=== PATIENT | male | born 1975 | race Caucasian/White ===

== ENCOUNTER 2018-04-09 09:05 | Day surgery (SDC) | payer OTHER, SELFPAY ==
[2018-04-09] VITALS (7 sets, daily range): BP systolic 99–125; BP diastolic 68–88; PULSE 65–73; RESP 16; TEMP 35.8–36.4; O2SAT 92–100; BMI 21.3
--- NOTE | 2018-04-09 11:24 | PCM.OPRPT ---
Problem List (1) Family history of Burkett syndrome Status: Acute (2) Family hx of colon cancer Status: Acute Report of Operation Date of Procedure: 04/09/18 Pre-Operative Diagnosis: Family history of colon cancer and Burkett syndrome Post-Operative Diagnosis: Normal colonoscopy Surgery/Procedure Performed:: Colonoscopy Description of Procedure: The major risks and benefits associated with the procedure were explained to the patient in detail. The patient verbalized understanding and agreement with the same. The patient was brought to the endoscopy suite. After adequate sedation was achieved, the patient was placed in the left lateral decubitus position and a digital rectal exam was performed. This examination was within normal limits. A well-lubricated colonoscope was then inserted into the rectum and advanced under direct visualization to the level of the cecum. The bowel prep was good. The cecum was identified by both visual and anatomic landmarks. A photograph was taken of the end of the cecum. The scope was then fully withdrawn while examining the color, texture, anatomy and integrity of the mucosa from the cecum to the anal canal. The findings were consistent with normal colonic mucosa. Over 6 minutes were taken to examine the colonic mucosa. Upon reaching the rectum the scope was retroflexed to examine the distal rectal vault. The scope was then straightened and was completely retrieved upon exiting the anal canal and the procedure was terminated. The patient was then transferred to the recovery room in stable condition. Recommendations for follow up: If the patient tests negative for Burkett syndrome he would be due in 5 years. If he is positive for Burkett syndrome he would need screening colonoscopy every 1-2 years.
== END 2018-04-09 12:18 | disposition home or self-care (01) ==
PROVIDERS: Family Provider Family Medicine; PCP Family Medicine; Visit Provider Surgery
PROC: 0DJD8ZZ Inspection of Lower Intestinal Tract, Via Natural or Artificial Opening Endoscopic (ICD-10-PCS; CPT 45378; principal; 2018-04-09 10:10)
DX: Z80.0 Family history of malignant neoplasm of digestive organs (principal); F41.9 Anxiety disorder, unspecified; Z86.2 Personal history of diseases of the blood and blood-forming organs and certain disorders involving the immune mechanism; Z79.899 Other long term (current) drug therapy
CPT/HCPCS: 45378; J7120

== ENCOUNTER → 2018-07-26 09:02 | Outpatient (CLI) | payer OTHER, SELFPAY ==
[2018-07-26 12:24] LABS: Absolute Lymphocyte Count 2.23 X10^3/ul (0.83-4.51); Absolute Neutrophil Count 2.6 X10^3/uL (2.0-7.7); Basophil# 0.01 X10^3/uL; Basophil% 0.2 % (0-1); Eosinophils% 1.9 % (0-5); Hematocrit 45.2 % (40-54); Hemoglobin 15.7 g/dl (13.0-16.5); Lymphocyte # 2.23 X10^3/ul (4.0); Lymphocyte % 41.4 % (19-41); Mean Corp Hgb Conc 34.7 g/gl (32-36); Mean Corpuscular Hgb 31.1 pg (27.0-32.0); Mean Corpuscular Volume 89.5 fL (80-94); Mean Platelet Vol. 10.8 fl (6.2-12.0); Monocyte# 0.43 X10^3/uL; Neutrophil # 2.62 X10^3/uL (2.7-7.7); Neutrophil % 48.5 % (47-70); Platelet Count 239 K/mm3 (150-450); RBC Distribution Width CV 12.1 % (11.6-14.6); RBC Distribution Width SD 38.5 fl (35.1-43.9); Red Blood Count 5.05 M/mm3 (4.6-6.2); White Blood Count 5.4 K/mm3 (4.4-11.0)
[2018-07-26 12:27] LABS: POSITIVE COUNT NO; POSITIVE DIFFERENTIAL NO; POSITIVE MORPHOLOGY NO
[2018-07-26 12:37] LABS: ALB/GLOB Ratio 1.1 RATIO (0.9-2.4); AST(SGOT) 23 U/L (15-37); Alanine Aminotransfer ALT/SGPT 57 U/L (16-61); Alkaline Phosphatase 62 U/L (45-117); Anion Gap 8 (5-15); BUN 23 mg/dL (7-18); BUN/Creat Ratio 21.3 RATIO (10-20); Calcium,Total 8.9 mg/dL (8.5-10.1); Chloride 105 mmol/L (98-107); Cholesterol 193 mg/dL (200); Creatinine, Serum 1.08 mg/dL (0.70-1.30); EST Glomerular Filtration Rate 80 mL/min (>60); Est Glom Filt Rate - Afr Amer 96 mL/min (>60); Globulin 3.6 g/dL (2.2-4.2); Glucose 87 mg/dL (74-106); High Density Lipoprotein 44 mg/dL; Potassium 4.1 mmol/L (3.5-5.1); Protein, Total 7.6 g/dL (6.4-8.2); Sodium Level 142 mmol/L (136-145); Triglycerides 121 mg/dL; Very Low Density Lipoprotein 24 mg/dL (5-40)
== END ==
PROVIDERS: Family Provider Family Medicine; PCP Family Medicine; Visit Provider Family Medicine
DX: Z00.00 Encounter for general adult medical examination without abnormal findings (principal)
CPT/HCPCS: 36415; 80053; 80061; 85025

== ENCOUNTER → 2020-04-07 | Outpatient (CLI) | payer OTHER, SELFPAY ==
[2018-04-09 09:23] VITALS: BMI 21.3
[2020-04-07 12:47] LABS: Absolute Lymphocyte Count 2.48 X10^3/uL (0.83-4.51); Absolute Neutrophil Count 2.5 X10^3/uL (2.0-7.7); Basophil# 0.03 X10^3/uL; Basophil% 0.5 % (0-1); Eosinophil# 0.09 X10^3/uL; Eosinophils% 1.6 % (0-5); Hematocrit 44.4 % (40-54); Hemoglobin 15.6 g/dL (13.0-16.5); Lymphocyte # 2.48 X10^3/ul (4.0); Lymphocyte % 43.9 % (19-41); Mean Corp Hgb Conc 35.1 g/dL (32-36); Mean Corpuscular Hgb 31.5 pg (27.0-32.0); Mean Corpuscular Volume 89.5 fL (80-94); Mean Platelet Vol. 11.4 fl (6.2-12.0); Monocyte# 0.53 X10^3/uL; Monocyte% 9.4 % (0-10); NRBC Flagged by Analyzer 0 % (0-5); Neutrophil % 44.2 % (47-70); Platelet Count 246 K/mm3 (150-450); RBC Distribution Width CV 11.5 % (11.6-14.6); RBC Distribution Width SD 36.8 fl (35.1-43.9); Red Blood Count 4.96 M/mm3 (4.6-6.2); White Blood Count 5.7 K/mm3 (4.4-11.0)
[2020-04-07 13:11] LABS: ALB/GLOB Ratio 1.1 RATIO (0.9-2.4); AST(SGOT) 22 U/L (15-37); Alanine Aminotransfer ALT/SGPT 60 U/L (16-61); Alkaline Phosphatase 62 U/L (45-117); Anion Gap 4 (5-15); BUN 18 mg/dL (7-18); BUN/Creat Ratio 16.7 RATIO (10-20); Calcium,Total 8.9 mg/dL (8.5-10.1); Chloride 103 mmol/L (98-107); Cholesterol 208 mg/dL (200); Creatinine, Serum 1.08 mg/dL (0.70-1.30); EST Glomerular Filtration Rate 79 mL/min (>60); Est Glom Filt Rate - Afr Amer 96 mL/min (>60); Globulin 3.7 g/dL (2.2-4.2); Glucose 90 mg/dL (74-106); High Density Lipoprotein 44 mg/dL; Potassium 3.8 mmol/L (3.5-5.1); Protein, Total 7.7 g/dL (6.4-8.2); Sodium Level 138 mmol/L (136-145); Triglycerides 144 mg/dL; Very Low Density Lipoprotein 29 mg/dL (5-40)
== END | disposition home or self-care (01) ==
LOC: MTLAB 09:30
PROVIDERS: PCP Family Medicine; Referring Provider Family Medicine; Visit Provider Family Medicine
DX: Z00.00 Encounter for general adult medical examination without abnormal findings (principal)
CPT/HCPCS: 36415; 80053; 80061; 85025

== ENCOUNTER → 2020-04-20 | Outpatient (CLI) | payer OTHER, SELFPAY ==
--- NOTE | 2020-04-20 10:00 | MRI_ITS ---
STUDY: MRI RIGHT KNEE REASON FOR EXAM: Male, 45 years old. Right knee pain. Anterior medial swelling. TECHNIQUE: Standardized fat and water weighted pulse sequences were obtained in all 3 orthogonal planes. COMPARISON: None. FINDINGS: Patellofemoral articular cartilage preserved. Medial compartment articular cartilage preserved. Lateral compartment articular cartilage preserved. No acute fracture. No acute dislocation. No acute bone destruction. Medial meniscus intact. Lateral meniscus intact. Mild pes anserinus peritendinitis. Small volume joint effusion. Quadriceps tendon fat pad impingement/edema. Mild anterior soft tissue swelling. Small popliteal cyst. Normal medial collateral ligamentous complex (MCL). Normal proximal tibiofibular articulation. Normal lateral collateral (fibular) ligament. Normal popliteus tendon. Normal biceps femoris tendon. Normal anterior cruciate ligament (ACL). Normal posterior cruciate ligament (PCL). Normal medial and lateral patellar retinaculum. Normal quadriceps tendon. Normal patellar tendon. Normal Hoffa''s fat pad. MRI/Lower Ext Joint Only (Routine) IMPRESSION: No internal derangement Mild pes anserinus peritendinitis Quadriceps tendon fat pad edema/impingement Small joint effusion, mild anterior swelling and small popliteal cyst Electronically Signed: Eber Shetty DO at 10:46 EDT Tel , Service support ,
== END | disposition home or self-care (01) ==
LOC: MRI 09:38
PROVIDERS: PCP Family Medicine; Referring Provider Family Medicine; Visit Provider Family Medicine
DX: M25.561 Pain in right knee (principal); M25.461 Effusion, right knee
CPT/HCPCS: 73721

== ENCOUNTER → 2020-05-21 | Outpatient (CLI) | payer OTHER, SELFPAY | END | disposition home or self-care (01) | LOC: MTDU 17:18 | PROVIDERS: PCP Family Medicine | DX: R50.9 Fever, unspecified (principal); R51.9 Headache, unspecified | CPT/HCPCS: 87635; C9803; U0003 ==

== ENCOUNTER 2020-10-03 13:35 | Emergency (ER) | payer OTHER, SELFPAY ==
[2020-10-03 13:36] VITALS: BP 142/100; PULSE 92; RESP 18; TEMP 35.7; O2SAT 96; BMI 22.8
[2020-10-03 13:45] VITALS: BP 75/54; PULSE 56; RESP 15
--- NOTE | 2020-10-03 13:51 | CT_ITS ---
STUDY: CT ABDOMEN AND PELVIS WITH CONTRAST REASON FOR EXAM: Male, 45 years old. ANGELES-ANAL VS ISCHIC RECTAL ABCESS, HX-HEMORRHOIDS, FAM HX OF ROBERTSON SYNDROME AND COLON CA, INGUINAL HERNIA REPAIR RADIATION DOSAGE (If Supplied By Facility): CTDIvol = ( 8.89 ) mGy, DLP = ( 1020.02 ) mGycm TECHNIQUE: Transaxial images were obtained from the dome of the diaphragm to the symphysis pubis without oral contrast. IV 100mL Isovue-370 was administered. Sagittal and coronal images were reconstructed. Individualized dose optimization techniques were used for this CT. COMPARISON: None. FINDINGS: The visualized lung bases are unremarkable. The visualized portions of the heart are within normal limits. Normal liver. Normal gallbladder and extrahepatic biliary system. Normal spleen. Normal pancreas. Normal bilateral adrenal glands. Normal right kidney. Normal left kidney. Normal visualized stomach. Normal small intestine. Normal colon. Subtle stranding of the fat along the right side of the anus consistent with proctitis. No abnormal gas to suggest fistula or abscess. The appendix is visualized and appears normal. Normal abdominal aorta. Normal inferior vena cava. Normal retroperitoneum. Normal urinary bladder. Normal abdominal wall. Normal osseous structures. CT/Abdomen/Pelvis W IV Cont ONLY IMPRESSION: Proctitis but no evidence of abscess or fistula. Electronically Signed: Rell Devine MD at 15:42 EST Tel , Service support ,
--- NOTE | 2020-10-03 13:52 | ED.DCSUM_ITS ---
History of Present Illness Chief Complaint: Abscess Informant: Patient Onset: Days Context: Sudden Onset Timing: Continuous Quality: Pain Location: Anus Current Severity: Moderate Maximum Severity: Severe Worsened by: Bowel movement and sitting Relieved by: Nothing Associated Symptoms: Nothing Narrative: Patient is a healthy 45-year-old male who denies history of diabetes, connective tissue disorder, rheumatic fever, heart murmur or SBE. He is on no immunosuppressive therapy. He states on he had a bout of food poisoning had diarrhea. He noted lump with wiping on Sunday. He was sent from urgent care for abscessed hemorrhoid. CT of the pelvis was obtained with IV contrast to evaluate for large perianal abscess that would require formal drainage in the OR versus emergency department. He last had something to eat or drink early this morning for breakfast. He has no allergies to antibiotics. Prior similar symptoms: No Recent Illness/Hospitalization: No - Past Medical History (1) Anxiety Status: Acute (2) Hemorrhoids Status: Acute Past Medical History - Allergies and Home Meds Allergies/Adverse Reactions: Allergies No Known Allergies Allergy (Verified 10/03/20 13:36) Primary Care Physician: Segundo Kruse DO [Primary Care Provider] - Prior records reviewed: Yes Surgical History: noncontributory Lives: With Family Smoking Status: Never smoker Alcohol: None Drugs: None Review of Systems General: Reports: Sweats. Denies: Chills, Fever, Malaise, Subjective Eyes: Denies: Visual changes - bilaterally, Blurred Vision - bilaterally ENT: Denies: Rhinorrhea, Sore throat Cardiovascular: Denies: Chest pain, Palpitations Respiratory: Denies: Dyspnea, Cough, Dyspnea on exertion Gastrointestinal: Denies: Nausea, Vomiting, Diarrhea Genitourinary: Denies: Dysuria, Hematuria, Frequency Musculoskeletal: Denies: Myalgias, Arthralgias, Neck pain, Back pain Skin: Reports: Rash, Wounds Neurological: Denies: Headache, Weakness, Parasthesia Endocrine: Denies: Polyuria, Polydipsia Hematologic: Denies: Easy bruising, Easy bleeding Physical Exam Vital Signs/Narrative: Vital Signs Temp Pulse Resp BP Pulse Ox 10/03/20 13:36 96.2 F L 92 18 142/100 H 96 Inital Vital Signs reviewed: Yes General: Well nourished, Well developed, Acute Distress Head: Normocephalic, Atraumatic Eyes: Perrl, EOMI. Negative for: Scleral icterus ENT: Moist mucous membranes, No rhinorrhea Neck: Supple, Nontender, No lymphadenopathy, No JVD Cardiovascular: Regular rate, Regular rhythm, No murmurs, Normal S1, Normal S2 Respiratory: No distress, CTA bilaterally, Chest nontender Rectal: - - Significant discomfort with stenosis. On rectal exam purulent drainage noted 7:00 lithotomy position. Back: Nontender, Normal Inspection Extremities: Nontender, No edema Skin: Normal color, No rash Neurological: Alert, Oriented x3, Cranial nerves II-XII grossly intact, Normal Strength, Normal Sensation Psychological: Normal affect, Normal Mood Diagnostic/Tx/Re-eval Impressions Abdomen/Pelvis CT 10/03/20 13:51 IMPRESSION: Proctitis but no evidence of abscess or fistula. Electronically Signed: Rell Deivne MD at 15:42 EST Tel , Service support , 10/03/20 13:51 CT Pel [Abdomen/Pelvis W IV Cont ONLY] [CT] Stat Laboratory Results 10/03/20 10/03/20 10/03/20 14:00 14:00 14:00 WBC 8.5 RBC 4.93 Hgb 15.7 Hct 43.0 MCV 87.2 MCH 31.8 MCHC 36.5 H RDW Std Deviation 35.8 RDW Coeff of Caryn 11.2 L Plt Count 270 MPV 10.8 Immature Gran % (Auto) 0.200 Neut % (Auto) 74.5 H Lymph % (Auto) 16.9 L [place] % (Auto) 7.5 Eos % (Auto) 0.5 Baso % (Auto) 0.4 Absolute Neuts (auto) 6.4 Absolute Lymphs (auto) 1.44 Nucleated RBC % 0 Sodium 138 Potassium 3.9 Chloride 102 Carbon Dioxide 30.0 Anion Gap 6 BUN 16 Creatinine 1.05 Estim Creat Clear Calc 86.40 Est GFR (MDRD) Af Amer 99 Est GFR (MDRD) Non-Af 81 BUN/Creatinine Ratio 15.2 Glucose 117 H Lactic Acid 1.[address] reveals evidence of proctitis no evidence of abscess. Suspect abscess drained when I performed the rectal exam since there was significant mount of purulent material that drained from the perianal region. White count is normal, lactate is normal. The hypotensive episode occurred when he had an IV placed and was a vasovagal episode. He has seen a surgeon in the past. We will have him referred for to that surgeon. - Medical Decision Making She has either a perianal versus ischio rectal abscess. There is no history of inflammatory bowel disorder. Uncertain cause. Appropriate work-up was undertaken. He was started on antibiotics. CT of the pelvis with IV contrast was ordered. Will drain if appropriate in the emergency Nuñez otherwise will call surgeon on-call, Dr. Daysi Brown ED Disposition - Plan for ED Patient: Disposition: Home or Assisted Living Diagnosis: Perianal abscess, Proctitis Instructions: ED ABSCESS Sadia-Anal IandD Prescriptions: Amox/Clavulanate Tablet [Augmentin Tablet] 875 mg PO Q12H #20 tab Transmission Status: Pending to [facility] Referrals: Segundo Kruse DO [Primary Care Provider] - Orlando Cotton MD [STAFF PHYSICIAN] - 2 Days for wound check
[2020-10-03 14:21] LABS: Absolute Lymphocyte Count 1.44 X10^3/uL (0.83-4.51); Absolute Neutrophil Count 6.4 X10^3/uL (2.0-7.7); Basophil# 0.03 X10^3/uL; Basophil% 0.4 % (0-1); Eosinophil# 0.04 X10^3/uL; Eosinophils% 0.5 % (0-5); Hemoglobin 15.7 g/dL (13.0-16.5); Lymphocyte # 1.44 X10^3/ul (4.0); Lymphocyte % 16.9 % (19-41); Mean Corp Hgb Conc 36.5 g/dL (32-36); Mean Corpuscular Hgb 31.8 pg (27.0-32.0); Mean Corpuscular Volume 87.2 fL (80-94); Mean Platelet Vol. 10.8 fl (6.2-12.0); Monocyte# 0.64 X10^3/uL; Monocyte% 7.5 % (0-10); NRBC Flagged by Analyzer 0 % (0-5); Neutrophil # 6.37 X10^3/uL (2.7-7.7); Neutrophil % 74.5 % (47-70); Platelet Count 270 K/mm3 (150-450); RBC Distribution Width CV 11.2 % (11.6-14.6); RBC Distribution Width SD 35.8 fl (35.1-43.9); Red Blood Count 4.93 M/mm3 (4.6-6.2); White Blood Count 8.5 K/mm3 (4.4-11.0)
[2020-10-03 14:30] LABS: Anion Gap 6 (5-15); BUN 16 mg/dL (7-18); BUN/Creat Ratio 15.2 RATIO (10-20); Calcium,Total 9.3 mg/dL (8.5-10.1); Chloride 102 mmol/L (98-107); Creatinine, Serum 1.05 mg/dL (0.70-1.30); EST Glomerular Filtration Rate 81 mL/min (>60); Est Glom Filt Rate - Afr Amer 99 mL/min (>60); Glucose 117 mg/dL (74-106); Potassium 3.9 mmol/L (3.5-5.1); Sodium Level 138 mmol/L (136-145)
[2020-10-03 14:37] LABS: Lactic Acid 1.5 mmol/L (0.4-1.9)
[2020-10-03] MEDS: 0.9% Normal Saline 1,000 ML 1000 ML IV ×2 (16:00→17:06)
[2020-10-03 16:29] VITALS: BP 129/91; PULSE 85; RESP 16; TEMP 35.7; O2SAT 97
--- NOTE | 2020-10-03 16:33 | ED.DCSUM_ITS ---
- ER Visit Summary Date of Service: 10/03/20 Chief Complaint: [] History of Present Illness: The patient is a 45 M [] Physical Examination: [] Test Results: [] Emergency Department Course and Treatment: [] Treatment Plan: [] Disposition: [] Impression: [] This note was generated with [employer] dictation software. It may contain incorrect words, spelling, and punctuation that were not noted in review of the chart prior to signing ED Disposition - Plan for ED Patient: Disposition: Home or Assisted Living Diagnosis: Perianal abscess, Proctitis Instructions: ED ABSCESS Sadia-Anal IandD Prescriptions: Amox/Clavulanate Tablet [Augmentin Tablet] 875 mg PO Q12H #20 tab Transmission Status: Received by [facility] Oxycodone HCl/Acetaminophen [Percocet 5/325] 1 tablet PO Q6H PRN PRN 3 Days #12 tablet PRN Reason: Pain Transmission Status: Sent to [facility] Referrals: Orlando Cotton MD [STAFF PHYSICIAN] - 2 Days for wound check Segundo Kruse DO [Primary Care Provider] -
== END 2020-10-03 18:14 | disposition home or self-care (01) ==
PROVIDERS: Emergency Provider Emergency Medicine; PCP Family Medicine
DX: K61.0 Anal abscess (principal); K62.89 Other specified diseases of anus and rectum
CPT/HCPCS: 74177; 80048; 83605; 85025; 87040; 96365; 99284; J7030; J7040; Q9967; A4216; J2405

== ENCOUNTER 2021-04-08 07:23 | Day surgery (SDC) | payer OTHER, SELFPAY ==
[2021-03-02 14:01] VITALS: BMI 22.8
[2021-04-08] VITALS (7 sets, daily range): BP systolic 86–127; BP diastolic 65–96; PULSE 58–75; RESP 16; TEMP 36.1–36.5; O2SAT 93–97; BMI 22.7
[2021-04-08] MEDS: Lactated Ringers 1,000 ML 100 ML IV (07:51)
--- NOTE | 2021-04-08 08:25 | H&P.OPEN ---
HPI - General HPI Greg BARAHONA, is a 45 M who presents for screening colonoscopy. Patient has screening colonoscopies every 3 years due to family history of Burkett syndrome as well as family history of colon cancer. Patient is not having any abdominal pain or blood in his stool at this time. Patient recently had a perirectal abscess which he reports that has calm down over the last [address] [facility] Medical History (Updated 04/07/21 @ 12:20 by Olivia Mayen) Alcohol use Anxiety Family history of Burkett syndrome Family hx of colon cancer Hemorrhoids History of stress test Non-smoker Perianal abscess Rectal pain Syncope Home Medications paroxetine HCl 10 mg tablet 10 mg PO QDAY 04/02/18 [History Last Taken 10/03/20] Allergy/AdvReac Type Severity Reaction Status Date / Time No Known Allergies Allergy Verified 04/08/21 07:37 Family History Mother Colon cancer Hodgkin lymphoma Non-Hodgkin lymphoma Surgical History (Updated 04/07/21 @ 12:20 by Olivia Mayen) History of wisdom tooth extraction Hx of colonoscopy Hx of inguinal hernia repair Hx of tooth extraction Social History Smoking Status: Never smoker second hand exposure: No alcohol intake: current alcohol intake frequency: a few times a month substance use type: does not use caffeine: Yes what type of physical activity do you participate in: none frequency: does not exercise seatbelt use: always Past Medical/Surgical History Planned Operation Planned Operative Procedure/s: COLONOSCOPY S.O.S: No Previous Hospitalizations/Surgeries HX Hospitalizations: No HX of Surgeries: hernia repair as child wisdom teeth colonoscopy Any Problems With Anesthesia: No You/Your Family Experience Fever (Hyperthermia) With Anes: No Cholinesterase deficiency: No Cardiovascular Hx Chest Pain within Last 2 months: No Hx of Irregular Heartbeat and/or Afib: No Hx Heart Attack: No Hx Congestive Heart Failure: No Hx Rheumatic Fever: No Hx Hypertension: No Hx Internal Defibrillator: No Hx Pacemaker: No Hx Cardiac Catheterization: No Hx Cardiac Surgery/Stents/Etc.: No Hx Stress Test: No Hx Pain in Legs when Walking/Leg Cramps: No Respiratory Chronic Cough: No HX of Shortness of Breath: No Hoarseness: No Hx Chronic Obstructive Pulmonary Disease (COPD): No Hx Asthma: No Hx Emphysema: No Hx Sleep Apnea: No Hx Respiratory Tract Infection/Cold (presently): No Do You Snore Loudly (louder than talking or can be heard): No Do You Often Feel Tired/ Fatigued/ Sleepy Dring Daytime?: No Has Anyone Observed You Stop Breathing During Sleep?: No Result (for STOP score): Negative Hx Smoking: No Smoking Status: Never smoker Gastrointestinal Hx Gastroesophageal Reflux: No Hx Gastrointestinal Disorders: No Hx Gastrointestinal Bleed: No Hx Ulcer: No Hx Hiatal Hernia: No Difficulty Chewing/Swallowing: No Special diet followed at home: No Hx Unplanned Weight Loss of 20#: No HX Unplanned Weight Gain of 20#: No Neurological Hx Seizures: No HX Syncope/Blackout Spells/Unconsciousness: Yes (neurogenic syncopial episodes) Hx Transient Ischemic Attacks (TIA): No Hx Multiple Sclerosis: No Hx Parkinson's Disease: No Hx Head/Neck Injury: No Hx Headaches: No Hx Back Injury/Pain: No Recent Onset of Speech Difficulty: No Restless Legs: Yes (occ) Does patient have nerve stimulator: No Blood Disorder Hx Leukemia: No Bleeding Tendencies: No Hx Deep Vein Thrombosis: No Hx High Cholesterol: No Blood Transmitted Disease: No Hx Hepatitis: No Hx Cirrhosis: No Hx Anemia: Yes (in the past) Hx Blood Disorders: No Genitourinary Hx Renal Disease: No Musculoskeletal Hx Arthritis: No Hx Rheumatoid Arthritis: No Hx Gout: No Recent Onset of an Orthopedic Problem: No Endocrine Hx Diabetes: No Thyroid Disease: No Hx Steroid Therapy: No Psycho/Social Hx Substance Use: No Hx Alcohol Use: Yes (social) Hx Anxiety: Yes (on med) Hx Depression: No Mental Illness: No Hx Dementia: No Miscellaneous Hx Cancer: No Recent Exposure to Contagious Disease: No Hx of C-Diff: No Any Loose Teeth: No Allergies No Known Allergies Allergy (Verified 04/08/21 07:37) Discharge Is Pt Admitted From a Retirement, or a Fdc: No After D/C, Where Do you Plan to Go: Return Home Vital Signs Vital Signs Vital Signs: 04/08/21 07:38 Temperature 97.6 F L Temperature Source Temporal Pulse Rate 75 Respiratory Rate 16 Respiratory Pattern Normal Blood Pressure 127/96 H Blood Pressure Mean 106 Blood Pressure Source Monitor Blood Pressure Position Semi-Fowlers Blood Pressure Location Left Arm Pulse Ox 97 Oxygen Delivery Method Room Air Weight Weight: 149 lb 11.102 oz Body Mass Index (BMI) 22.7 Physical Exam Const alert and oriented x3 Resp normal respiratory effort and normal air movement Cardio regular rate and regular rhythm GI soft to palpation, non-tender and non-distended Assessment & Plan Assessment/Plan (1) Rectal pain: (2) Family history of Burkett syndrome: PLAN: The patient has family history of Burkett syndrome and requires colonoscopies every 3 years. He has not had any issues except for recurrent perirectal abscesses. His last colonoscopy was 3 years ago and was normal. Patient reports over the last 2 weeks the perirectal abscess has improved there is concern for possible rectal fistula. I explained endoscopy in detail to the patient. I explained the risks including but not limited to stroke or heart attack with anesthesia, perforation of the GI tract, bleeding, infection. I explained that any of these could necessitate further emergency surgery. The patient understands and all questions were answered sufficiently. The patient wishes to proceed with procedure. Orlando Cotton MD Pager: [facility] [address] [place] [address] [address] [place] [address] Office: Surgery Risks - Colonoscopy Risks Include but are not Limited To: Risks include but are not limited to: Bleeding, perforation requiring further surgery, inability to complete colonoscopy requiring barium enema.
--- NOTE | 2021-04-08 08:53 | OP.COLON_ITS ---
Patient Name: Reynold Santacruz Procedure Date: 04/08/2021 8:27 AM Date of : 1975 Age: 45 Procedure: Colonoscopy Indications: Family history of hereditary nonpolyposis colorectal cancer Providers: Orlando Cotton MD Medicines: Monitored Anesthesia Care Patient Profile: This is a 45 year old male. Refer to note in patient chart for documentation of history and physical. Last Colonoscopy: 3 years ago. Complications: No immediate complications. Procedure: Pre-Anesthesia Assessment: - Prior to the procedure, a History and Physical was performed, and patient medications and allergies were reviewed. The patient's tolerance of previous anesthesia was also reviewed. The risks and benefits of the procedure and the sedation options and risks were discussed with the patient. All questions were answered, and informed consent was obtained. Prior Anticoagulants: The patient has taken no previous anticoagulant or antiplatelet agents. After reviewing the risks and benefits, the patient was deemed in satisfactory condition to undergo the procedure. After I obtained informed consent, the scope was passed under direct vision. Throughout the procedure, the patient's blood pressure, pulse, and oxygen saturations were monitored continuously. The adult colonoscope was introduced through the anus and advanced to the cecum, identified by appendiceal orifice and ileocecal valve. The colonoscopy was performed without difficulty. The patient tolerated the procedure well. The quality of the bowel preparation was good. Scope In: 8:36:24 AM Scope Withdrawal Time 0 hours 6 minutes 21 seconds Scope Out: 8:45:50 AM Total Procedure Duration Time 0 hours 9 minutes 26 seconds Findings: The entire examined colon appeared normal on direct and retroflexion views. Impression: - The entire examined colon is normal on direct and retroflexion views. - No specimens collected. Recommendation: - Discharge patient to home. - Resume previous diet. - Continue present medications. - Repeat colonoscopy in 3 years for surveillance. Procedure Code(s): --- Professional --- 76619, Colonoscopy, flexible; diagnostic, including collection of specimen(s) by brushing or washing, when performed (separate procedure) Diagnosis Code(s): --- Professional --- Z80.0, Family history of malignant neoplasm of digestive organs CPT copyright 2017 [employer]. All rights reserved. The codes documented in this report are preliminary and upon personal insurance advisor review may be revised to meet current compliance requirements. Orlando Cotton MD 04/08/2021 8:52:58 AM This report has been signed electronically. Number of Addenda: 0 Note Initiated On: 04/08/2021 8:27 AM
--- NOTE | 2021-04-08 08:54 | OP.CCLET_ITS ---
04/08/2021 Segundo Kruse [address] [place] [address] Re : [facility] This procedure was performed on Thursday, April 08, 2021. My impressions and recommendations are as follows: Impressions : - The entire examined colon is normal on direct and retroflexion views. - No specimens collected. Recommendations : - Discharge patient to home. - Resume previous diet. - Continue present medications. - Repeat colonoscopy in 3 years for surveillance. My findings are described in the full procedure note, which is enclosed. If I can be of further assistance, please feel free to contact me at Doctor phone number(s): , Work: . Sincerely, Orlando Cotton MD 04/08/2021 8:52:58 AM This report has been signed electronically.
== END 2021-04-08 10:04 | disposition home or self-care (01) ==
LOC: EN 07:24 → AC 07:25
PROVIDERS: PCP Family Medicine; Referring Provider Family Medicine; Visit Provider Surgery
PROC: 0DJD8ZZ Inspection of Lower Intestinal Tract, Via Natural or Artificial Opening Endoscopic (ICD-10-PCS; CPT 45378; principal; 2021-04-08 08:25)
DX: Z12.11 Encounter for screening for malignant neoplasm of colon (principal); Z80.0 Family history of malignant neoplasm of digestive organs; F41.9 Anxiety disorder, unspecified; Z87.19 Personal history of other diseases of the digestive system; Z79.899 Other long term (current) drug therapy
CPT/HCPCS: 45378; J7120; J2405

== ENCOUNTER 2022-08-16 22:52 | Emergency (ER) | payer OTHER, SELFPAY ==
[2022-08-16 22:53] VITALS: BP 136/99; PULSE 89; RESP 16; TEMP 36.7; O2SAT 99; BMI 22.0
--- NOTE | 2022-08-16 23:53 | EDS_ITS ---
HPI History of Present Illness Chief Complaint: Abscess Narrative Narrative: 47-year-old male states he has problems with recurrent perirectal abscesses. He is having increased pain and presents to the emergency department to have it lanced. He states that he wanted to come early. He denies any fevers or chills. He saw the nurse practitioner at Dr. Cotton's office today who put him on Augmentin. He states that since he saw her today, the pain has been increasing. He states it is on the upper right portion near his rectum. It usually horseshoes around he wants it drained as he has had it drained previously and Dr. Christianne Howell's office along with the ED previously. [facility] Medical History Alcohol use Anxiety Family history of Burkett syndrome Family hx of colon cancer Hemorrhoids History of stress test Non-smoker Perianal abscess Rectal pain Syncope Home Medications paroxetine HCl 10 mg tablet (Paxil) 10 mg PO QDAY 04/02/18 [History Last Taken 10/03/20] amoxicillin 875 mg-potassium clavulanate 125 mg tablet 1 tab PO BID 7 days #14 tabs 08/16/22 [Rx Last Taken Unknown] Allergy/AdvReac Type Severity Reaction Status Date / Time No Known Allergies Allergy Verified 08/16/22 22:55 Family History Mother Colon cancer Hodgkin lymphoma Non-Hodgkin lymphoma Surgical History History of wisdom tooth extraction Hx of colonoscopy Hx of inguinal hernia repair Hx of tooth extraction Social History Smoking Status: Never smoker second hand exposure: No alcohol intake: current alcohol intake frequency: a few times a month substance use type: does not use caffeine: Yes what type of physical activity do you participate in: none frequency: does not exercise seatbelt use: always ROS ROS ED ROS Narrative Constitutional: No fever, no chills. HEENT: No sore throat. No neck pain. No loss of vision. No rhinorrhea. Cardiovascular: No chest pain. No palpitations. No pedal edema. Respiratory: No cough, no shortness of breath. Abdominal: No abdominal pain. No nausea. No vomiting. Perirectal pain secondary to abscess. Genitourinary: No dysuria. No hematuria. Musculoskeletal: No myalgias. No arthralgias. Neurologic: No headaches. No dizziness. No lightheadedness. Skin: No rash. No change in color. Psychiatric: No depression. No anxiety. EXAM Physical Exam Narrative Exam Narrative: Afebrile. Vital signs noted. HEENT: Normocephalic. Atraumatic. PERRL, EOMI. Neck soft and supple. No point tenderness or step off. Cardiovascular: Regular rate and rhythm. No murmurs, rubs, or gallops appreciated. Respiratory: No tachypnea. Lungs clear to auscultation bilaterally. Gastrointestinal: Abdomen soft, nontender, with normoactive bowel sounds. No rebound or guarding. No fluctuance right side perirectally. Neurological: Awake. Alert. Nonfocal, nonlateralizing. Skin: No rash. Normal color. No pallor. Musculoskeletal: No pedal edema. Full range of motion extremities. Const Vital Signs: 08/16/22 22:53 Temperature 98.0 F Temperature Source Temporal Pulse Rate 89 Respiratory Rate 16 Blood Pressure 136/99 H Blood Pressure Mean 111 Pulse Ox 99 Oxygen Delivery Method Room Air MDM MDM MDM Narrative Medical decision making narrative: Patient was consented for incision and drainage. He was told of the risk of return of blood, continued infection, scarring, damage to the perirectal sphincter with problems with incontinence. He acknowledges an understanding. Lidocaine 1% was used as a local anesthetic locally. Small stellate incision was made with a #11 blade with return of blood. Area was deloculated. It is not a deep pocket. There is no room for packing. Patient tolerated procedure well. He will continue the antibiotics that he was given today by his general surgeon's nurse practitioner. Return instructions to the emergency department were reviewed. Disposition is discharged home in stable condition. Discharge Plan Triage Chief Complaint: Abscess ED Provider: Selwyn Mcnamara Dx/Rx/DC Orders Clinical Impression: Rectal pain, Perirectal abscess Instructions: ED ABSCESS Sadia-Anal IandD Prescriptions: No Action paroxetine HCl [Paxil] 10 mg tablet 10 mg PO QDAY amoxicillin-pot clavulanate 875-125 mg tablet 1 tab PO BID 7 Days Qty: 14 0RF Primary Care Provider: Segundo Kruse Referrals: Orlando Cotton MD [Med Staff - Active Staff] - 5-7 Days Segundo Kruse, [Primary Care Provider] - Activity Restrictions/Additional Instructions: Continue the antibiotics that you were given today by your general surgeon's nurse practitioner until therapy is complete. Disposition Disposition: Home, Self Care
[2022-08-17] MEDS: Lidocaine 1% (20 ml mdv) 20 ML Vial INFILT (00:36)
== END 2022-08-17 00:41 | disposition home or self-care (01) ==
PROVIDERS: Emergency Provider Emergency Medicine; PCP Family Medicine; Visit Provider Emergency Medicine
DX: K61.1 Rectal abscess (principal); K62.89 Other specified diseases of anus and rectum
CPT/HCPCS: 46050; 99282

== ENCOUNTER 2022-08-18 08:37 | Emergency (ER) | payer OTHER, SELFPAY ==
[2022-08-18] VITALS (7 sets, daily range): BP systolic 122–140; BP diastolic 91–110; PULSE 68–82; RESP 12–18; TEMP 35.7; O2SAT 92–100; BMI 22.8
--- NOTE | 2022-08-18 09:55 | EDS_ITS ---
HPI History of Present Illness Chief Complaint: Abscess Detail of Chief Complaint: Perianal abscess Informant: patient Onset/Context/Timing Onset: Days Context: Sudden Onset Timing: Continuous Quality: Severe pain Location: Perianal Current Severity: Mild Maximum Severity: Severe Worsened by: Movement, bowel movement Relieved by: Nothing Associated Symptoms Associated Symptoms: None Narrative Narrative: Patient is a 47-year-old male with history of perianal abscess. Denies history of inflammatory bowel disorder. Denies history of rheumatic fever, heart murmur, SBE or being immune suppressed. He is on antidepressant and Amoxil bacillin with clavulanic acid. He was prescribed the antibiotic by Dr. Modesta maki nurse practitioner 2 days ago. He reports he was seen in the emergency department and attempt was made I&D which was unsuccessful. He denies fever, chills night sweats. He denies cardiac respiratory symptoms. He denies GI sy mptoms. He denies urologic symptoms. He does complain of perianal pain. He states he has had this before. He has not noted a rash. He denies myalgias arthralgias. Denies joint swelling. Prior similar symptoms: Yes Recent Illness/Hospitalization: Yes [facility] Medical History Alcohol use Anxiety Family history of Burkett syndrome Family hx of colon cancer Hemorrhoids History of stress test Non-smoker Perianal abscess Rectal pain Syncope Home Medications paroxetine HCl 10 mg tablet (Paxil) 10 mg PO QDAY 04/02/18 [History Last Taken 10/03/20] amoxicillin 875 mg-potassium clavulanate 125 mg tablet 1 tab PO BID 7 days #14 tabs 08/16/22 [Rx Last Taken Unknown] Allergy/AdvReac Type Severity Reaction Status Date / Time No Known Allergies Allergy Verified 08/18/22 08:37 Family History Mother Colon cancer Hodgkin lymphoma Non-Hodgkin lymphoma Surgical History History of wisdom tooth extraction Hx of colonoscopy Hx of inguinal hernia repair Hx of tooth extraction Social History Smoking Status: Never smoker second hand exposure: No alcohol intake: current alcohol intake frequency: a few times a month substance use type: does not use caffeine: Yes what type of physical activity do you participate in: none frequency: does not exercise seatbelt use: always ROS ROS ED Constitutional Constitutional ED: Denies chills, fever(s), subjective, sweats or weight loss Eyes Eyes: Denies blurry vision or change in vision ENT ENT ED: Denies rhinorrhea or sore throat Cardiovascular Cardiovascular: Denies chest pain or palpitations Respiratory/Chest Respiratory/Chest: Denies cough, dyspnea or dyspnea on exertion Gastrointestinal Gastrointestinal: Reports other Details: Per HPI narrative ; Denies abdominal pain, constipation, diarrhea, melena, nausea or vomiting Genitourinary Genitourinary ED: Denies dysuria, hematuria or urinary frequency Musculoskeletal Musculoskeletal: Denies arthralgias or myalgias Integumentary Reports abscess; Denies Abrasions or rash Neurologic Neurologic: Denies paresthesias or weakness Psychiatric Psychiatric: Reports anxiety and depression; Denies suicidal ideation Hematologic/Lymphatic Hematologic/Lymphatic: Reports systems reviewed and no addt'l complaints, except as documented EXAM Physical Exam Const Vital Signs: 08/18/22 08:38 08/18/22 09:37 08/18/22 10:46 Temperature 96.3 F L 96.3 F L Temperature Source Temporal Temporal Pulse Rate 76 76 68 Pulse Rate [1 (Initial Baseline)] Pulse Rate [2] Pulse Rate [3] Respiratory Rate 16 16 12 Respiratory Rate [1 (Initial Baseline)] Respiratory Rate [2] Respiratory Rate [3] Blood Pressure 138/110 H 138/110 H 135/100 H Blood Pressure [1 (Initial Baseline)] Blood Pressure [2] Blood Pressure Mean 119 119 Pulse Ox 100 100 98 Oxygen Delivery Method Room Air Room Air Room Air Oxygen Delivery Method [1 (Initial Baseline)] Oxygen Delivery Method [2] Oxygen Delivery Method [3] Oxygen Flow Rate (L/min) [2] Oxygen Flow Rate (L/min) [3] 08/18/22 11:56 08/18/22 12:05 08/18/22 12:10 Temperature Temperature Source Pulse Rate Pulse Rate [1 (Initial Baseline)] 76 Pulse Rate [2] 72 Pulse Rate [3] 82 Respiratory Rate Respiratory Rate [1 (Initial Baseline)] 13 Respiratory Rate [2] 18 Respiratory Rate [3] 14 Blood Pressure Blood Pressure [1 (Initial Baseline)] 135/94 H Blood Pressure [2] 126/107 H Blood Pressure Mean Pulse Ox Oxygen Delivery Method Room Air Room Air Oxygen Delivery Method [1 (Initial Baseline)] Room Air Oxygen Delivery Method [2] Nasal Cannula Oxygen Delivery Method [3] Nasal Cannula Oxygen Flow Rate (L/min) [2] 2 Oxygen Flow Rate (L/min) [3] 2 Positive well nourished and well developed General Appearance ED: well developed and NAD; Negative for cyanotic, diaphoretic or pallor HEENT Reports moist mucous membranes HEENT Narrative: Head is atraumatic normocephalic. Ears normal. Nares patent. Eyes PERRL and EOMs intact bilaterally General Eye ED: Negative for pale conjunctiva or scleral icterus Neck no lymphadenopathy and supple Chest Wall inspection of chest normal and palpation of chest normal Resp normal respiratory effort and clear to auscultation bilaterally Cardio regular rate, regular rhythm, S1 normal heart sound, S2 normal heart sound and no murmurs GI normal to inspection, nondistended, normoactive bowel sounds, non-tender and non-distended; Negative for hepatosplenomegaly GI Narrative: Patient has fluctuant area 8 or 9:00 lithotomy position. There is fluctuance in the area. Rectal tone is intact. Prostate is normal size nontender. Rectal Exam: normal sphincter tone and prostate normal Back/Spine no CVA tenderness Extremity normal to inspection Neuro oriented x3, CN's II-XII intact bilaterally and no sensory deficits noted Sensorium / Orientation: alert Psych mental status grossly normal Skin no rashes or lesions noted, no wounds and skin turgor normal General Skin Exam: elasticity normal; Negative for jaundice or pallor MDM MDM MDM Narrative Medical decision making narrative: Patient has a perianal abscess. He is present on antibiotics. He is on appropriate antibiotics. CBC was obtained assess white count and differential. Basic metabolic panel to assess glucose and renal function. Patient was consented for procedural sedation and I&D. Patient does have a ride home. Lab Data Labs: Laboratory Results - last 24 hr 08/18/22 08/18/22 10:03 10:03 WBC 9.1 RBC 4.84 Hgb 15.4 Hct 43.0 MCV 88.8 MCH 31.8 MCHC 35.8 RDW Std Deviation 36.5 RDW Coeff of Caryn 11.5 L Plt Count 252 MPV 10.6 Immature Gran % (Auto) 0.200 Neut % (Auto) 70.4 H Lymph % (Auto) 20.2 [place] % (Auto) 8.0 Eos % (Auto) 0.9 Baso % (Auto) 0.3 Absolute Neuts (auto) 6.4 Absolute Lymphs (auto) 1.84 Nucleated RBC % 0 Sodium 140 Potassium 4.1 Chloride 108 H Carbon Dioxide 28.0 Anion Gap 4 L BUN 24 H Creatinine 0.98 Estim Creat Clear Calc 90.82 Est GFR (MDRD) Af Amer 105 Est GFR (MDRD) Non-Af 87 BUN/Creatinine Ratio 24.4 H Glucose 112 H Calcium 9.0 Procedures Other Procedures Procedure(s): Patient was informed he will require an incision and drainage. Since he is in significant pain patient was consented not only for I&D but deep procedural sedation using propofol. Is no contraindication propofol. Had no complication with IV anesthetics in the past. Patient is presently on Augmentin. He has not anything to eat or drink since 629. Patient was given opportunity ask questions. None were asked. Start time: 1146 Stop time: 08/21/2002 Patient was prepped draped sterile fashion. He was administered 60 mg of propofol by sc. The area was anesthetized with 1% lidocaine by local infiltration. Patient abscess spontaneously ruptured when area was anesthetized by local infiltration. Incision was made. There was further purulent material noted. Blunt dissection was undertaken with further purulent material noted/flowing from incision site. The cavity was irrigated. 1/4 inch plain gauze was placed as a wick to prevent this from closing since this is a recurrence. ASA 1 Mallampati score 1 Discharge Plan Triage Chief Complaint: Abscess ED Provider: Alexi Giraldo Dx/Rx/DC Orders Clinical Impression: Abscess, perianal Instructions: ED Procedural Sedation, (Adult), ED ABSCESS Sadia-Anal IandD Prescriptions: No Action paroxetine HCl [Paxil] 10 mg tablet 10 mg PO QDAY amoxicillin-pot clavulanate 875-125 mg tablet 1 tab PO BID 7 Days Qty: 14 0RF Primary Care Provider: Segundo Kruse Referrals: Orlando Cotton MD [Med Staff - Active Staff] - 2 Days for wound check Segundo Kruse DO [Primary Care Provider] - Activity Restrictions/Additional Instructions: Have wick removed in 2 to 3 days. Disposition Disposition: Home, Self Care
[2022-08-18 10:20] LABS: Absolute Lymphocyte Count 1.84 X10^3/uL (0.83-4.51); Absolute Neutrophil Count 6.4 X10^3/uL (2.0-7.7); Basophil# 0.03 X10^3/uL; Basophil% 0.3 % (0-1); Eosinophil# 0.08 X10^3/uL; Eosinophils% 0.9 % (0-5); Hemoglobin 15.4 g/dL (13.0-16.5); Lymphocyte # 1.84 X10^3/ul (0.83-4.51); Lymphocyte % 20.2 % (19-41); Mean Corp Hgb Conc 35.8 g/dL (32-36); Mean Corpuscular Hgb 31.8 pg (27.0-32.0); Mean Corpuscular Volume 88.8 fL (80-94); Mean Platelet Vol. 10.6 fl (6.2-12.0); Monocyte# 0.73 X10^3/uL; NRBC Flagged by Analyzer 0 % (0-5); Neutrophil # 6.41 X10^3/uL (2.7-7.7); Neutrophil % 70.4 % (47-70); Platelet Count 252 K/mm3 (150-450); RBC Distribution Width CV 11.5 % (11.6-14.6); RBC Distribution Width SD 36.5 fl (35.1-43.9); Red Blood Count 4.84 M/mm3 (4.6-6.2); White Blood Count 9.1 K/mm3 (4.4-11.0)
[2022-08-18 10:24] LABS: Anion Gap 4 (5-15); BUN 24 mg/dL (7-18); BUN/Creat Ratio 24.4 RATIO (10-20); Chloride 108 mmol/L (98-107); Creatinine, Serum 0.98 mg/dL (0.70-1.30); EST Glomerular Filtration Rate 87 mL/min (>60); Est Glom Filt Rate - Afr Amer 105 mL/min (>60); Estimated Creatinine Clearance 90.82 ml/min; Glucose 112 mg/dL (74-106); Potassium 4.1 mmol/L (3.5-5.1); Sodium Level 140 mmol/L (136-145)
[2022-08-18] MEDS: Propofol 200 MG/20 ML Vial IV BOLUS (12:08)
[2022-08-18] MEDS: Lidocaine 1% (20 ml mdv) 20 ML Vial INFILT (12:08)
--- NOTE | 2022-08-18 12:18 | NURSING ---
60 mg propofol given during procedure. 4 ml in syringe and the rest of the propofol bottle wasted by Zoey Franco RN
== END 2022-08-18 12:32 | disposition home or self-care (01) ==
PROVIDERS: Emergency Provider Emergency Medicine; PCP Family Medicine; Visit Provider Emergency Medicine
DX: K61.0 Anal abscess (principal); F41.9 Anxiety disorder, unspecified; F32.A Depression, unspecified
CPT/HCPCS: 46050; 80048; 85025; 96374; 99284; J7030; A4216

== ENCOUNTER → 2024-05-31 | Outpatient (CLI) | payer OTHER, SELFPAY ==
[2024-05-31 12:18] LABS: Erythrocyte Sedimentation Rate 3 mm/hr (0-20)
[2024-05-31 12:20] LABS: Absolute Lymphocyte Count 2.23 X10^3/uL (0.83-4.51); Absolute Neutrophil Count 2.7 X10^3/uL (2.0-7.7); Basophil# 0.02 X10^3/uL; Basophil% 0.4 % (0-1); Eosinophil# 0.05 X10^3/uL; Eosinophils% 0.9 % (0-5); Hematocrit 44.3 % (40-54); Hemoglobin 15.6 g/dL (13.0-16.5); Lymphocyte # 2.23 X10^3/ul (0.83-4.51); Lymphocyte % 40.8 % (19-41); Mean Corp Hgb Conc 35.2 g/dL (32-36); Mean Corpuscular Hgb 30.8 pg (27.0-32.0); Mean Corpuscular Volume 87.4 fL (80-94); Mean Platelet Vol. 10.7 fl (6.2-12.0); Monocyte# 0.48 X10^3/uL; Monocyte% 8.8 % (0-10); NRBC Flagged by Analyzer 0 % (0-5); Neutrophil # 2.67 X10^3/uL (2.7-7.7); Neutrophil % 48.9 % (47-70); Platelet Count 288 K/mm3 (150-450); RBC Distribution Width CV 11.8 % (11.6-14.6); RBC Distribution Width SD 37.3 fl (35.1-43.9); Red Blood Count 5.07 M/mm3 (4.6-6.2); White Blood Count 5.5 K/mm3 (4.4-11.0)
[2024-05-31 13:01] LABS: ALB/GLOB Ratio 1.1 RATIO (0.9-2.4); AST(SGOT) 15 U/L (15-37); Alanine Aminotransfer ALT/SGPT 40 U/L (16-61); Albumin, Serum 3.9 g/dL (3.2-5.0); Alkaline Phosphatase 59 U/L (45-117); Anion Gap 4 (5-15); BUN 20 mg/dL (7-18); BUN/Creat Ratio 20.1 RATIO (10-20); CRP < 2.90 mg/L (0.0-3.0); Calcium,Total 9.2 mg/dL (8.5-10.1); Chloride 108 mmol/L (98-107); Cholesterol 167 mg/dL (200); Creatinine, Serum 0.99 mg/dL (0.70-1.30); EST Glomerular Filtration Rate 85 mL/min (>60); Est Glom Filt Rate - Afr Amer 103 mL/min (>60); Globulin 3.5 g/dL (2.2-4.2); Glucose 80 mg/dL (74-106); High Density Lipoprotein 50 mg/dL; PSA,Total - Annual Screen 1.02 ng/mL (0.00-4.00); Potassium 3.8 mmol/L (3.5-5.1); Protein, Total 7.4 g/dL (6.4-8.2); Sodium Level 141 mmol/L (136-145); Triglycerides 128 mg/dL; Very Low Density Lipoprotein 26 mg/dL (5-40)
[2024-06-03 15:08] LABS: Endomysial Antibody IgA Negative (Negative); Immunoglobulin A 457 mg/dL (90-386); t-Transglutaminase IgA <2 U/mL (0-3)
[2024-06-05 04:08] LABS: ANTINUCLEAR ANTIBODIES DIRECT Negative (Negative); Beef <0.10 kU/L (Class 0); Chocolate <0.10 kU/L (Class 0); Codfish <0.10 kU/L (Class 0); Corn <0.10 kU/L (Class 0); Egg, Whole <0.10 kU/L (Class 0); Milk (Cow) <0.10 kU/L (Class 0); Mussels <0.10 kU/L (Class 0); Peanut <0.10 kU/L (Class 0); Pork <0.10 kU/L (Class 0); Salmon <0.10 kU/L (Class 0); Shrimp <0.10 kU/L (Class 0); Soybean <0.10 kU/L (Class 0); Tuna <0.10 kU/L (Class 0); Wheat <0.10 kU/L (Class 0)
== END | disposition home or self-care (01) ==
LOC: LAB 11:54
PROVIDERS: PCP Family Medicine; Referring Provider Nurse Practitioner Family; Visit Provider Nurse Practitioner Family
DX: Z00.01 Encounter for general adult medical examination with abnormal findings (principal); R19.7 Diarrhea, unspecified; M25.50 Pain in unspecified joint; Z12.5 Encounter for screening for malignant neoplasm of prostate; R10.9 Unspecified abdominal pain
CPT/HCPCS: 36415; 80053; 80061; 82784; 83516; 83630; 84153; 85025; 85652; 86003; 86005; 86038; 86140; 86255; 87177; 87209; 87493; 87506; G0103

== ENCOUNTER 2024-07-15 10:42 | Emergency (ER) | payer OTHER, SELFPAY ==
[2024-07-15 10:42] VITALS: BP 138/99; PULSE 88; RESP 14; TEMP 36.3; O2SAT 100; BMI 22.5
--- NOTE | 2024-07-15 11:30 | CT_ITS ---
STUDY: CT ABDOMEN AND PELVIS WITH CONTRAST - URINARY TRACT REASON FOR EXAM: Male, 49 years old. Abdominal pain diarrhea -- IV PO Contrast RADIATION DOSAGE (If Supplied By Facility): CTDIvol = ( 9.61 ) mGy, DLP = ( 366.68 ) mGycm TECHNIQUE: IV Gastrografin and 100mL Isovue-300 was administered. Transaxial images were obtained from the dome of the diaphragm to the symphysis pubis subsequent to intravenous contrast administration. Delayed images of the pelvis were obtained well. Multiplanar coronal and sagittal images were reformatted. The protocol utilizes one or more of the following dose reduction techniques: automated exposure control, adjustment of mA and/or kV according to patient size,and/or use of iterative reconstruction technique. COMPARISON: October 03, 2020 FINDINGS: The visualized lung bases are unremarkable. The visualized portions of the heart are within normal limits. Normal liver. Normal gallbladder and extrahepatic biliary system. Normal spleen. Normal pancreas. Normal bilateral adrenal glands. Normal visualized stomach. Normal small intestine. Normal colon. The appendix is visualized and appears normal. There is stable right perianal curvilinear soft tissue fullness. Normal abdominal aorta. No retroperitoneal adenopathy. Normal right kidney. Normal left kidney. The urinary bladder is within normal limits. Normal abdominal wall. Normal osseous structures. 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 Electronically Signed: Yajaira Sanchez MD at 13:54 EST ,
--- NOTE | 2024-07-15 11:31 | EDS_ITS ---
HPI HPI - GI History of Present Illness Chief Complaint: Abd Pain Informant: patient Narrative Narrative: 49-year-old male presenting to the emergency room with the chief complaint of 6 to 8 weeks of diarrhea abdominal cramping. Patient states that he went to see primary care and has a CT scan scheduled for 2 weeks. He saw surgery yesterday to discuss possible colonoscopy. He states that he is worried about colon cancer lymphomas. He denies any fever. He has been able to eat and drink normally. He has had prior colonoscopies in the past that was negative. He called [employer] where he works to see about getting into see a soda dialyzer and was informed it would be about 13 months before his appointment. He states that he feels that his workup so far has been low hanging fruit. He has had blood work showed a normal white count and stool studies. He he does not have those exact information with them. He states that he has yet to see a doctor only seen providers. He notes a history of a perianal abscess but does not have a diagnosis of Crohn's ulcerative colitis or other inflammatory bowel history. He states he has rare alcohol use. Stools described as brown without mucus or blood. He notes about 2 bowel movements per day. [facility] Medical History Alcohol use Perianal abscess Syncope Non-smoker History of stress test Rectal pain Family history of Burkett syndrome Hemorrhoids Anxiety Family hx of colon cancer Home Medications ?Medication ?Instructions ?Recorded ?Last Taken ?Type paroxetine HCl 10 mg tablet (Paxil) 10 mg PO QDAY 04/02/18 10/03/20 History dicyclomine 10 mg capsule 10 mg PO TID PRN abdominal pain 07/15/24 Unknown History Allergy/AdvReac Type Severity Reaction Status Date / Time No Known Allergies Allergy Verified 07/15/24 10:42 Family History Mother Colon cancer Hodgkin lymphoma Non-Hodgkin lymphoma Surgical History Hx of tooth extraction History of wisdom tooth extraction Hx of colonoscopy Hx of inguinal hernia repair Social History (Updated 07/15/24 @ 11:43 by Shira Mcghee) household members: children current occupational status: employed Smoking Status: Never smoker second hand exposure: No alcohol intake: current alcohol intake frequency: a few times a month substance use type: does not use caffeine: Yes what type of physical activity do you participate in: none frequency: does not exercise seatbelt use: always ROS ROS ED Constitutional Constitutional ED: Denies chills, fever(s) or weight loss Eyes Eyes: Denies change in vision or diplopia ENT ENT ED: Denies ear pain, rhinorrhea or sore throat Cardiovascular Cardiovascular: Denies chest pain, orthopnea, palpitations or racing heartbeat Respiratory/Chest Respiratory/Chest: Denies cough, dyspnea or orthopnea Gastrointestinal Gastrointestinal: Reports abdominal pain and diarrhea; Denies nausea or vomiting Genitourinary Genitourinary ED: Denies dysuria, hematuria or urinary frequency Musculoskeletal Musculoskeletal: Denies arthralgias or myalgias Integumentary Denies abscess or rash Neurologic Neurologic: Denies headache(s) or weakness Psychiatric Psychiatric: Denies anxiety, depression, suicidal ideation or suicidal thoughts Endocrine Endocrinology: Denies polydipsia, polyphagia or polyuria Allergic/Immunologic Allergic/Immunologic ED: Denies mouth swelling, tongue swelling or urticaria EXAM Physical Exam Const Vital Signs: 07/15/24 10:42 07/15/24 12:42 07/15/24 14:00 Temperature 97.3 F L Temperature Source Temporal Pulse Rate 88 81 Respiratory Rate 14 18 18 Blood Pressure 138/99 H 139/103 H Blood Pressure Mean 112 115 Pulse Ox 100 97 Oxygen Delivery Method Room Air Room Air Room Air Positive well nourished and well developed General Appearance ED: well developed HEENT Reports normocephalic, head/scalp atraumatic and moist mucous membranes Eyes PERRL and EOMs intact bilaterally Neck no lymphadenopathy, supple and no JVD Resp normal respiratory effort and clear to auscultation bilaterally Cardio regular rate, regular rhythm and no murmurs GI normal to inspection, nondistended, normoactive bowel sounds and non-tender Palpation: soft Back/Spine no CVA tenderness and normal ROM Extremity normal to inspection General Extremety ED: Negative for edema General Extremity: Negative for edema Neuro oriented x3 and CN's II-XII intact bilaterally Sensorium / Orientation: alert Motor Exam: strength 5/5 throughout Psych mental status grossly normal Mood & Affect: Negative for depressed or tearful Skin no rashes or lesions noted and no wounds MDM MDM MDM Narrative Medical decision making narrative: Differential diagnosis includes but not limited to colitis inflammatory bowel disease infectious diarrhea viral syndrome electrolyte abnormalities renal dysfunction White count 5.7 CBC LFTs within normal limits. CT abdomen pelvis does not show anything acute. Please see radiologist read. Patient will be referred to GI for outpatient management. Return if worsening or concerns History & Record Review Discussion w/independent historian: Patient Lab Data Attestation: I reviewed the patient's lab results. Labs: Laboratory Results - last 24 hr 07/15/24 11:38 WBC 5.7 RBC 5.18 Hgb 16.1 Hct 45.0 MCV 86.9 MCH 31.1 MCHC 35.8 RDW Std Deviation 36.5 RDW Coeff of Caryn 11.5 L Plt Count 274 MPV 10.3 Immature Gran % (Auto) 0.700 Neut % (Auto) 54.9 Lymph % (Auto) 34.6 [place] % (Auto) 8.6 Eos % (Auto) 0.5 Baso % (Auto) 0.7 Absolute Neuts (auto) 3.2 Absolute Lymphs (auto) 1.98 Nucleated RBC % 0 Sodium 139 Potassium 4.2 Chloride 106 Carbon Dioxide 29.0 Anion Gap 4 L BUN 19 H Creatinine 0.97 Estim Creat Clear Calc 88.52 Est GFR (MDRD) Af Amer 107 Est GFR (MDRD) Non-Af 88 BUN/Creatinine Ratio 19.6 Glucose 101 Calcium 9.3 Total Bilirubin 0.70 Direct Bilirubin 0.16 AST 20 ALT 55 Alkaline Phosphatase 63 Total Protein 7.6 Albumin 4.2 Globulin 3.4 Radiography Diagnostic Testing: Clinical Impression(s) from Imaging Studies Abdomen/Pelvis CT 07/15/24 11:30 IMPRESSION: Stable right perianal curvilinear soft tissue fullness, 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 Electronically Signed: Yajaira Sanchez MD at 13:54 EST , Discharge Plan Triage Chief Complaint: Abd Pain ED Provider: Shantanu Ervin Dx/Rx/DC Orders Clinical Impression: Chronic diarrhea, Abdominal pain Instructions: ED Diarrhea, Unknown Cause Prescriptions: No Action paroxetine HCl [Paxil] 10 mg tablet 10 mg PO QDAY dicyclomine 10 mg capsule 10 mg PO TID PRN (Reason: abdominal pain) Primary Care Provider: Segundo Kruse Referrals: Segundo Kruse DO [Primary Care Provider] - Keep Souleymane appointment Friend,DO Ramez [Med Staff - Active Staff] - As soon as possible (For gastroenterology evaluation) Print Language: Citizen Of [place] Disposition Disposition: Home, Self Care
[2024-07-15 11:48] LABS: Absolute Lymphocyte Count 1.98 X10^3/uL (0.83-4.51); Absolute Neutrophil Count 3.2 X10^3/uL (2.0-7.7); Basophil# 0.04 X10^3/uL; Basophil% 0.7 % (0-1); Eosinophil# 0.03 X10^3/uL; Eosinophils% 0.5 % (0-5); Hemoglobin 16.1 g/dL (13.0-16.5); Lymphocyte # 1.98 X10^3/ul (0.83-4.51); Lymphocyte % 34.6 % (19-41); Mean Corp Hgb Conc 35.8 g/dL (32-36); Mean Corpuscular Hgb 31.1 pg (27.0-32.0); Mean Corpuscular Volume 86.9 fL (80-94); Mean Platelet Vol. 10.3 fl (6.2-12.0); Monocyte# 0.49 X10^3/uL; Monocyte% 8.6 % (0-10); NRBC Flagged by Analyzer 0 % (0-5); Neutrophil # 3.15 X10^3/uL (2.7-7.7); Neutrophil % 54.9 % (47-70); Platelet Count 274 K/mm3 (150-450); RBC Distribution Width CV 11.5 % (11.6-14.6); RBC Distribution Width SD 36.5 fl (35.1-43.9); Red Blood Count 5.18 M/mm3 (4.6-6.2); White Blood Count 5.7 K/mm3 (4.4-11.0)
[2024-07-15 12:03] LABS: AST(SGOT) 20 U/L (15-37); Alanine Aminotransfer ALT/SGPT 55 U/L (16-61); Albumin, Serum 4.2 g/dL (3.2-5.0); Alkaline Phosphatase 63 U/L (45-117); Anion Gap 4 (5-15); BUN 19 mg/dL (7-18); BUN/Creat Ratio 19.6 RATIO (10-20); Bilirubin, Direct 0.16 mg/dL (0.00-0.30); Calcium,Total 9.3 mg/dL (8.5-10.1); Chloride 106 mmol/L (98-107); Creatinine, Serum 0.97 mg/dL (0.70-1.30); EST Glomerular Filtration Rate 88 mL/min (>60); Est Glom Filt Rate - Afr Amer 107 mL/min (>60); Estimated Creatinine Clearance 88.52 ml/min; Globulin 3.4 g/dL (2.2-4.2); Glucose 101 mg/dL (74-106); Potassium 4.2 mmol/L (3.5-5.1); Protein, Total 7.6 g/dL (6.4-8.2); Sodium Level 139 mmol/L (136-145)
[2024-07-15 12:42] VITALS: BP 139/103; PULSE 81; RESP 18; O2SAT 97
[2024-07-15 14:00] VITALS: RESP 18
== END 2024-07-15 14:30 | disposition home or self-care (01) ==
PROVIDERS: Emergency Provider Emergency Medicine; PCP Family Medicine; Visit Provider Emergency Medicine
DX: K52.9 Noninfective gastroenteritis and colitis, unspecified (principal); F41.9 Anxiety disorder, unspecified; Z80.0 Family history of malignant neoplasm of digestive organs; Z79.899 Other long term (current) drug therapy
CPT/HCPCS: 74177; 80048; 80076; 85025; 99283; Q9967; A4216

== ENCOUNTER → 2024-09-10 | Outpatient (CLI) | payer OTHER, SELFPAY ==
[2024-09-10 11:06] LABS: Erythrocyte Sedimentation Rate < 1 mm/hr (0-20)
[2024-09-10 12:19] LABS: CRP < 2.90 mg/L (0.0-3.0)
[2024-09-12 23:07] LABS: ACCA 17 units (0-90); ALCA 9 units (0-60); AMCA 25 units (0-100); Cytoplasmic Ab (C-ANCA) <1:20 titer (Neg:<1:20); Pancreatic Elastase, Fecal > 800 (>200); Perinuclear Ab (P-ANCA) <1:20 titer (Neg:<1:20); gASCA 20 units (0-50)
[2024-09-13 02:07] LABS: Calprotectin, Stool 11 ug/g (0-120)
== END | disposition home or self-care (01) ==
LOC: LABSPEC 10:20
PROVIDERS: PCP Family Medicine; Referring Provider Student in an Organized Health Care Education/Training Program; Visit Provider Student in an Organized Health Care Education/Training Program
DX: R19.5 Other fecal abnormalities (principal); K61.0 Anal abscess; Z80.0 Family history of malignant neoplasm of digestive organs
CPT/HCPCS: 36415; 82653; 83516; 83993; 85652; 86036; 86037; 86140; 86671

== ENCOUNTER 2024-09-12 07:52 | Day surgery (SDC) | payer OTHER, SELFPAY ==
[2024-09-12] VITALS (7 sets, daily range): BP systolic 76–122; BP diastolic 49–97; PULSE 74–88; RESP 16; TEMP 36.3–36.6; O2SAT 93–99; BMI 21.7
--- NOTE | 2024-09-12 | COLBX_PTH ---
PATIENT: CLAUDY NOVA LOC: EN U#:[id number] AGE/SX: 49/M ROOM: RE09/12/[address]: Dr. Orlando Cotton MD : 1975 BED: DIS: 09/12/2024 SPEC #: [id number] RECD: 09/12/24 13:45 STATUS: JANINA JONESKellie #: [id number] DRAKE: 09/12/24 00:[address]: Orlando Cotton DEPT: SURGICAL PATHOLOGY RECD BY: Brian Pa ENTERED: 09/12/24 13:46 SP TYPE: COLON BX OTHR DR: Dr. Segundo Kruse, DO Tissues: A - Ileum, NOS B - COLON BIOPSY Procedures: Surgery Specimen Level IV HEADER OPERATION: Colonoscopy PRE-OP DIAGNOSIS: Loose stools TISSUE SUBMITTED: A- Terminal ileum biopsy, B- Random colon biopsy MICROSCOPIC DIAGNOSIS A. Terminal ileum, biopsy: Fragments of small intestinal mucosa, no pathologic diagnosis. B. Colon, random biopsy: Fragments of colonic mucosa, no pathologic diagnosis. [email or web address] 09/15/2024 MICROSCOPIC DESCRIPTION Slides are reviewed. GROSS DESCRIPTION A. Received in fixative is one container labeled with the patient's name and designated Terminal ileum biopsy. The specimen consists of two irregular fragments of light watt soft tissue that in aggregate measure 0.8 x 0.4 x 0.1 cm. The specimen is totally submitted in one cassette. B. Received in fixative is one container labeled with the patient's name and designated Random colon biopsy. The specimen consists of multiple irregular fragments of light watt soft tissue that in aggregate measure 2.5 x 0.8 x 0.1 cm. The specimen is totally submitted in one cassette. 09/12/2024 TC:4 CPT:45636r4
--- NOTE | 2024-09-12 08:40 | PCM.PRE.AN2 ---
ASA Classification* ASA Classification ASA Classification: 2 Assessment & Plan Anesthesia* Anesthesia Assessment Anesthesia Assessment: Discussed sedation and/or anesthesia options, risks, benefits, and alternatives with patient/parents/legal guardian/POA. Questions invited. The patient/parents/legal guardian/POA seems to understand and agrees to proceed with anesthesia plan. Reviewed the physical assessment, medical history, allergy history and patient home medications list prior to surgery/procedure/anesthetic and documented any changes. Performed airway and anesthesia risk assessments. Anesthesia Type Anesthesia Type: MAC Anesthesia Focused Assessment* Temperature: 97.4 F Pulse Rate: 88 Blood Pressure: 122/97 Respiratory Rate: 16 Pulse Ox: 99 Oxygen Delivery Method: Room Air Airway Assessment Mouth opens: >3 cm Mallampati Score: II Teeth Condition: Caps/Crowns Neck Range of motion (ROM): Full ROM Focused Labs Anesthesia Preop lab: CBC WBC 5.7 K/mm3 (4.4-11.0) 07/15/24 11:38 RBC 5.18 M/mm3 (4.6-6.2) 07/15/24 11:38 Hgb 16.1 g/dL (13.0-16.5) 07/15/24 11:38 Hct 45.0 % (40-54) 07/15/24 11:38 Plt Count 274 K/mm3 (150-450) 07/15/24 11:38 CHEMISTRY Potassium 4.2 mmol/L (3.5-5.1) 07/15/24 11:38 Sodium 139 mmol/L (136-145) 07/15/24 11:38 BUN 19 mg/dL (7-18) H 07/15/24 11:38 Creatinine 0.97 mg/dL (0.70-1.30) 07/15/24 11:38 Glucose 101 mg/dL (74-106) 07/15/24 11:38 COAG Pre-Assessment Diagnosis/Proposed Procedure Planned Operative Procedure(s): CSCOPE Anesthesia History 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 When Was Last Pacemaker Check QUESTION #4 FULL TEXT: You/Your Family Experience fever (hyperthermia) with Anesthesia Last Oral Intake Last Oral intake: Last Oral Intake NPO since 23:30 09/12/24 08:13 Meds taken in AM with sips of water? 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 Female No 09/10/24 13:26 HX of Motion Sickness Yes 09/10/24 13:26 HX of N/V After Surgery No 09/10/24 13:26 Non-Smoker Yes 09/10/24 13:26 Duration of Surgery greater No 09/10/24 13:26 than 60 minutes Number of Risk Factors 2 09/10/24 13:26 PONV Score Moderate Risk 09/10/24 13:26 Height & Weight Height & Weight: Anesthesia: Height & Weight Height 5 ft 8 in 09/12/24 08:13 Weight: 65 kg 09/12/24 08:13 Body Mass Index (BMI) 21.7 09/12/24 08:13 Respiratory Assessment Respiratory Assessment - bulk truck driver: Respiratory Tract Infection Hx - bulk truck driver Hx Respiratory Tract Infection No 09/10/24 13:26 STOP Sleep Apnea STOP Sleep Apnea - bulk truck driver: STOP Sleep Apnea - bulk truck driver Hx Hypertension No 09/10/24 13:26 Hx Sleep Apnea No 09/10/24 13:26 CPAP BIPAP Do you snore loudly (louder No 09/10/24 13:26 than talking or can be heard Do you often feel tired/ No 09/10/24 13:26 fatigued/ sleepy during daytime? Has anyone observed you stop No 09/10/24 13:26 breathing during sleep? STOP Results Negative 09/10/24 13:26 QUESTION #5 FULL TEXT : Do you snore loudly (louder than talking or can be heard through closed doors)? 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 Specify any problems Hx of Preganancy in last 3 N/A 09/10/24 13:26 Months Nurse Filling Out Transfusion NBUCHER 09/10/24 13:26 & Questions: Date: 09/10/24 09/10/24 13:26 Time: 13:09/10/24 13:26 Patient unable to answer at this time (ie. 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: /Reproductive Hx- bulk truck driver Hx Now No 09/10/24 13:26 Gestational Age (in weeks): EDC: Hx Hx Para Hx Section SAB No 09/10/24 13:26 [facility] Medical History Alcohol use Perianal abscess Syncope Non-smoker History of stress test Rectal pain Family history of Burkett syndrome Hemorrhoids Anxiety Family hx of colon cancer Home Medications ?Medication ?Instructions ?Recorded ?Last Taken ?Type paroxetine HCl 10 mg tablet (Paxil) 10 mg PO QDAY 04/02/18 09/11/24 History dicyclomine 10 mg capsule 10 mg PO TID PRN abdominal pain 07/15/24 Unknown History dicyclomine 10 mg capsule 10 mg PO TID #90 caps 08/07/24 09/11/24 Rx Allergy/AdvReac Type Severity Reaction Status Date / Time No Known Allergies Allergy Verified 09/12/24 08:10 Family History Mother Colon cancer Hodgkin lymphoma Non-Hodgkin lymphoma Uncle Burkett syndrome Surgical History History of anal fistulotomy (~2021) Hx of tooth extraction History of wisdom tooth extraction Hx of colonoscopy Hx of inguinal hernia repair Social History household members: children current occupational status: employed Smoking Status: Never smoker second hand exposure: No alcohol intake: current alcohol intake frequency: a few times a month substance use type: does not use caffeine: Yes what type of physical activity do you participate in: none frequency: does not exercise seatbelt use: always Review of Systems (Anesthesia) ROS Narrative System reviewed and no additional complaints, except as documented.
--- NOTE | 2024-09-12 08:50 | PCM.HP.BLA ---
History and Physical Date of Admission: 09/12/24 Intake Vital Signs 08/29/2311:12 07/15/2410:42 08/05/2413:31 Height 5 ft 8 in 5 ft 8 in 5 ft 8 in Weight: 145 lb BMI 22.0 BP 147/89 H Blood Pressure Location Rt brachial Position Sitting Respiration 17 Pulse 72 Pulse Source Monitor Pulse Oximetry (%) 100 Oxygen Delivery Method room air Intake Visit Reasons: CHANGE OF BOWEL SYMPTOMS Chief Complaint: change of bowel symptoms Is patient in pain?: No Allergies No Known Allergies Allergy (Verified 08/05/24 13:32) Medications ?Medication ?Instructions ?Recorded ?Confirmed ?Type paroxetine HCl 10 mg tablet (Paxil) 10 mg PO QDAY 04/02/18 08/05/24 History dicyclomine 10 mg capsule 10 mg PO TID PRN abdominal pain 07/15/24 08/05/24 History PFSH Medical History Alcohol use Perianal abscess Syncope Non-smoker History of stress test Rectal pain Family history of Burkett syndrome Hemorrhoids Anxiety Family hx of colon cancer Surgical History Hx of tooth extraction History of wisdom tooth extraction Hx of colonoscopy Hx of inguinal hernia repair Family History (Updated 08/05/24 @ 13:31 by Meghana Claire) Mother Colon cancer Hodgkin lymphoma Non-Hodgkin lymphomaUncle Burkett syndrome Social History household members: children current occupational status: employed Smoking Status: Never smoker second hand exposure: No alcohol intake: current alcohol intake frequency: a few times a month substance use type: does not use caffeine: Yes what type of physical activity do you participate in: none frequency: does not exercise seatbelt use: always HPI HPI HPI: Patient is a 49-year-old male here for GI issues. The patient has been having a lot of cramping and loose stools for the last months. He has been tested for ova and parasites which was negative. He denies blood in the stool. Last colonoscopy was 3 years ago for family history of Burkett syndrome. ROS General General: No weight change, appetite, fatigue, colon cancer, breast cancer or weakness HEENT HEENT: No difficulty swallowing, eye injury, eye surgery, swollen glands or hoarseness Endo Endocrine: No thyroid disease, diabetes mellitus, thyroid cancer, Hair loss, heat intolerance or cold intolerance Skin Skin: No rash or changing moles Musc Musculoskeletal: Yes back problems; No arthritis, rheumatoid arthritis, gout or joint pain Cardio Cardiovascular: No murmur, pacemaker, heart disease, atrial fibrillation, high blood pressure, heart attack, heart stent, palpitations, shortness of breat with exertion or chest pain Psych Psychiatric: Yes anxiety; No depression or hearing voices Resp Respiratory: No shortness of breath, No sleep apnea, No cough, No COPD, No asthma, No emphysema and No wheezing Gastro Gastrointestinal: Yes abdominal pain, No nausea or vomiting, Yes diarrhea, No constipation, No blood in stool, No acid reflux, No hemorrhoids, No ulcers, No gallbladder problem and No black,tarry stools Rafiq Hematologic: No blood thinners, No blood disorders, No bleeding, No anemia and No blood clots Neuro Neurologic: No system reviewed and no additional complaints, except as documented, No as per HPI, No abnormal gait, No abnormal hearing, No abnormal movements, No abnormal speech, No behavioral changes, No burning sensations, No confusion, No convulsions, No disequilibrium, No dizziness, No localized weakness, No frequent falls, No headache(s), No lack of coordination, No loss of vision, No memory loss, No numbness, No other visual disturbances, No radicular pain, No restless legs, No sensory deficit, No syncope, No tingling, No tremor(s), No weakness and No other Exam Const General: cooperative Orientation: alert and oriented x3 HENMT Head: normal to inspection Neck Neck: normal visual inspection and full ROM Chest Chest palpation & inspection: normal inspection of the chest Resp Effort & Inspection: normal respiratory effort Auscultation: clear to auscultation bilaterally Cardio Rate: regular rate Rhythm: regular rhythm GI Inspection: non-distended Palpation: soft and nontender Skin General: no rashes or lesions noted Neuro General: patient alert and patient oriented x3 Extrem General: full ROM Psych Appearance: grossly normal Mental Status: mental status grossly normal Assessment and Plan Assessment and Plan (1) Loose stools: Status: Acute Plan: The patient is having loose stools as well as a lot of cramping. He was started on Bentyl by the ER physician which she reports has helped. If he stops the Bentyl his cramping comes back and he experiences loose stools again and he says it is unbearable. He denies family history of Crohn's disease or ulcerative colitis. Plan for colonoscopy with random biopsies to evaluate. I explained endoscopy in detail to the patient. I explained the risks including but not limited to stroke or heart attack with anesthesia, perforation of the GI tract, bleeding, infection. I explained that any of these could necessitate further emergency surgery. The patient understands and all questions were answered sufficiently. The patient wishes to proceed with procedure. Orlando Cotton MD Pager: [facility] [address] [place] [address], [address] [place] [address] Office: I have examined the patient and the H&P has been reviewed. There are no clinical changes since date of exam.
--- NOTE | 2024-09-12 09:20 | OP.COLON_ITS ---
Patient Name: Reynold Santacruz Procedure Date: 09/12/2024 8:58 AM Date of : 1975 Age: 49 Procedure: Colonoscopy Indications: Chronic diarrhea Providers: Orlando Cotton MD Referring MD: Segundo Kruse Medicines: Propofol per Anesthesia Patient Profile: This is a 49 year old male. Refer to note in patient chart for documentation of history and physical. Last Colonoscopy: 3 years ago. Complications: No immediate complications. Procedure: Pre-Anesthesia Assessment: - Prior to the procedure, a History and Physical was performed, and patient medications and allergies were reviewed. The patient's tolerance of previous anesthesia was also reviewed. The risks and benefits of the procedure and the sedation options and risks were discussed with the patient. All questions were answered, and informed consent was obtained. Prior Anticoagulants: The patient has taken no anticoagulant or antiplatelet agents. After reviewing the risks and benefits, the patient was deemed in satisfactory condition to undergo the procedure. After I obtained informed consent, the scope was passed under direct vision. Throughout the procedure, the patient's blood pressure, pulse, and oxygen saturations were monitored continuously. The colonoscope was introduced through the anus and advanced to the cecum, identified by appendiceal orifice and ileocecal valve. The colonoscopy was performed without difficulty. The patient tolerated the procedure well. The quality of the bowel preparation was good. The ileocecal valve, appendiceal orifice, and rectum were photographed. Scope In: 9:06:32 AM Scope Withdrawal Time 0 hours 7 minutes 52 seconds Scope Out: 9:17:42 AM Total Procedure Duration Time 0 hours 11 minutes 10 seconds Findings: Biopsies for histology were taken with a cold forceps from the entire colon for evaluation of microscopic colitis. Biopsies were taken with a cold forceps in the terminal ileum for histology. The entire examined colon appeared normal on direct and retroflexion views. Impression: - The entire examined colon is normal on direct and retroflexion views. - Biopsies were taken with a cold forceps from the entire colon for evaluation of microscopic colitis. - Biopsies were taken with a cold forceps for histology in the terminal ileum. Recommendation: - Discharge patient to home. - Resume previous diet. - Continue present medications. - Await pathology results. - Repeat colonoscopy in 3 years for screening purposes. Procedure Code(s): --- Professional --- 49536, Colonoscopy, flexible; with biopsy, single or multiple Diagnosis Code(s): --- Professional --- K52.9, Noninfective gastroenteritis and colitis, unspecified CPT copyright 2021 [employer]. All rights reserved. The codes documented in this report are preliminary and upon load checker review may be revised to meet current compliance requirements. Orlando Cotton MD 09/12/2024 9:20:28 AM This report has been signed electronically. Number of Addenda: 0 Note Initiated On: 09/12/2024 8:58 AM
--- NOTE | 2024-09-12 09:20 | OP.CCLET_ITS ---
09/12/2024 Segundo Kruse [address] [place] [address] Re : [facility] This procedure was performed on Thursday, September 12, 2024. My impressions and recommendations are as follows: Impressions : - The entire examined colon is normal on direct and retroflexion views. - Biopsies were taken with a cold forceps from the entire colon for evaluation of microscopic colitis. - Biopsies were taken with a cold forceps for histology in the terminal ileum. Recommendations : - Discharge patient to home. - Resume previous diet. - Continue present medications. - Await pathology results. - Repeat colonoscopy in 3 years for screening purposes. My findings are described in the full procedure note, which is enclosed. If I can be of further assistance, please feel free to contact me at Doctor phone number(s): , Work: . Sincerely, Orlando Cotton MD 09/12/2024 9:20:28 AM This report has been signed electronically.
--- NOTE | 2024-09-12 09:24 | PCM.POST.ANE ---
Anesthesia: Postop Eval I Current Vital Signs Temperature: 97.3 F Pulse Rate: 84 Blood Pressure: 76/58 Respiratory Rate: 16 Pulse Ox: 93 Oxygen Delivery Method: Room Air Assessment Airway patent: Yes Spontaneous unlabored respirations: Yes Mental status: Asleep nausea: No Vomiting: No Anesthesia Complication: No Fluid Hydration Crystalloid volume administer (ml): 40 Total IV fluid infused: 40 Progress Note Anesthesia document: Postop Eval 1 completed: Yes
--- NOTE | 2024-09-12 10:41 | PCM.POSTANE2 ---
Anesthesia Postop Eval I Sum Postop Eval Completion status Anesthesia document: Postop Eval 1 completed: Yes Anesthesia Postop Eval I Summary Anesthesia Postop Eval I Summary: Anesthesia Postop Eval I: Assessment Summary Airway patent Yes 09/12/24 09:25 [email or web address] Spontaneous unlabored Yes 09/12/24 09:25 [email or web address] respirations Mental status Asleep 09/12/24 09:25 [email or web address] nausea No 09/12/24 09:25 [email or web address] Vomiting No 09/12/24 09:25 [email or web address] Anesthesia Postop Eval I: Fluid Summary Crystalloid volume administer 40 09/12/24 09:25 [email or web address] (ml) Colloids volume administered ( ml) Blood Product volume administered (ml) Total IV fluid infused 40 09/12/24 09:25 [email or web address] Anesthesia Postop Eval I: Summary Notes Anesthesia Complication No 09/12/24 09:25 [email or web address] Anesthesia Complication Comment: Post-operative progress note Anesthesia: Postop Eval II Evaluation Mental status: Awake Pain Level: 0 nausea: No Vomiting: No Complications Anesthesia Complication: No
== END 2024-09-12 10:25 | disposition home or self-care (01) ==
LOC: EN 07:52 → AC 07:53
PROVIDERS: PCP Family Medicine; Referring Provider Family Medicine; Visit Provider Surgery
PROC: 0DJD8ZZ Inspection of Lower Intestinal Tract, Via Natural or Artificial Opening Endoscopic (ICD-10-PCS; CPT 45378; principal; 2024-09-12 08:55)
DX: K52.9 Noninfective gastroenteritis and colitis, unspecified (principal); Z80.0 Family history of malignant neoplasm of digestive organs; F41.9 Anxiety disorder, unspecified; Z79.899 Other long term (current) drug therapy
CPT/HCPCS: 45380; 88305; A4216; J2405

== ENCOUNTER → 2024-10-17 | Outpatient (CLI) | payer OTHER, SELFPAY ==
--- NOTE | 2024-10-17 08:47 | US_ITS ---
PROCEDURE: ABDOMEN LIMITED REASON FOR EXAM: Abdominal pain. COMPARISON: None FINDINGS: Liver: Grossly normal size and echotexture. Gallbladder: No stones, sludge, wall thickening or tenderness. Common bile duct: Normal measuring it measures 2.2 mm. Pancreas: Visualized portions are sonographically unremarkable. Visualized portions of the right kidney are unremarkable. No right upper quadrant ascites. US/Abdomen Limited IMPRESSION: NORMAL RIGHT UPPER QUADRANT ULTRASOUND. Reading Location: [id number]
== END | disposition home or self-care (01) ==
LOC: US 08:44
PROVIDERS: PCP Family Medicine; Referring Provider Student in an Organized Health Care Education/Training Program; Visit Provider Student in an Organized Health Care Education/Training Program
DX: R10.9 Unspecified abdominal pain (principal); R19.7 Diarrhea, unspecified
CPT/HCPCS: 76705

== ENCOUNTER → 2024-11-03 | Outpatient (CLI) | payer OTHER, SELFPAY ==
--- NOTE | 2024-11-03 09:42 | NM_ITS ---
PROCEDURE: HEPATOBILLIARY IMG W/PHARM INT REASON FOR EXAM: ABD PAIN TECHNIQUE: Intravenous Choletec with planar imaging of the abdomen. 1.3 mcg Kinevac intravenously approximately 60 minutes after the radiopharmaceutical with additional anterior imaging and a region of interest drawn around the gallbladder to calculate a time-activity curve. RADIOPHARMACEUTICAL: 5.8 mCi of technetium labeled mebrofenin COMPARISON: None. FINDINGS: There is good uptake of the radiopharmaceutical by the liver. Normal gallbladder visualization with the gallbladder identified by 15 minutes. Gallbladder Ejection Fraction: 9 % (Normal is >35%) NM/Hepatobilliary Img w/Pharm Int IMPRESSION: Decreased gallbladder ejection fraction. Reading Location: [place] [id number]
== END | disposition home or self-care (01) ==
LOC: NM 09:38
PROVIDERS: PCP Family Medicine; Referring Provider Student in an Organized Health Care Education/Training Program; Visit Provider Student in an Organized Health Care Education/Training Program
DX: R19.5 Other fecal abnormalities (principal); R10.9 Unspecified abdominal pain
CPT/HCPCS: 78227; A9537; J2805

== ENCOUNTER 2025-03-12 07:55 | Day surgery (SDC) | payer OTHER, SELFPAY ==
[2025-03-12] VITALS (9 sets, daily range): BP systolic 110–159; BP diastolic 90–126; PULSE 67–83; RESP 16–20; TEMP 36.5–36.9; O2SAT 96–100; BMI 22.8
[2025-03-12] MEDS: Lactated Ringers 1,000 ML 15 ML IV (08:30)
[2025-03-12] MEDS: INDOCYANINE GREEN 3.75 MG in Syringe 1.5 ML 999 MG IV (08:38)
--- NOTE | 2025-03-12 09:01 | PCM.PRE.AN2 ---
ASA Classification* ASA Classification ASA Classification: 2 Assessment & Plan Anesthesia* Anesthesia Assessment Anesthesia Assessment: Discussed sedation and/or anesthesia options, risks, benefits, and alternatives with patient/parents/legal guardian/POA. Questions invited. The patient/parents/legal guardian/POA seems to understand and agrees to proceed with anesthesia plan. Reviewed the physical assessment, medical history, allergy history and patient home medications list prior to surgery/procedure/anesthetic and documented any changes. Performed airway and anesthesia risk assessments. Anesthesia Type Anesthesia Type: General Anesthesia Focused Assessment* Temperature: 98 F Pulse Rate: 71 Blood Pressure: 138/104 Respiratory Rate: 16 Pulse Ox: 97 Airway Assessment Mouth opens: >3 cm Mallampati Score: II Teeth Condition: Intact Neck Range of motion (ROM): Full ROM Labs Anesthesia Preop lab: CBC WBC 5.7 K/mm3 (4.4-11.0) 07/15/24 11:38 07/15/24 RBC 5.18 M/mm3 (4.6-6.2) 07/15/24 11:38 07/15/24 Hgb 16.1 g/dL (13.0-16.5) 07/15/24 11:38 07/15/24 Hct 45.0 % (40-54) 07/15/24 11:38 07/15/24 Plt Count 274 K/mm3 (150-450) 07/15/24 11:38 07/15/24 CHEMISTRY Potassium 4.2 mmol/L (3.5-5.1) 07/15/24 11:38 07/15/24 Sodium 139 mmol/L (136-145) 07/15/24 11:38 07/15/24 BUN 19 mg/dL (7-18) H 07/15/24 11:38 07/15/24 Creatinine 0.97 mg/dL (0.70-1.30) 07/15/24 11:38 07/15/24 Glucose 101 mg/dL (74-106) 07/15/24 11:38 07/15/24 COAG Pre-Assessment Diagnosis/Proposed Procedure Planned Operative Procedure(s): Robotic Cholecystectomy Anesthesia History Anesthesia History - emergency response coordinator: Anesthesia History - emergency response coordinator Hx Hospitalization No 03/02/25 10:42 Any Problems With Anesthesia No 03/02/25 10:42 Cholinesterase deficiency No 03/02/25 10:42 You/Your Family Experience No 03/02/25 10:42 fever (hyperthermia) with Relationship Recent Exposure to Contagious No 03/12/25 08:25 Disease Does patient have nerve No 03/02/25 10:42 stimulator Patient instructed to have device shut off --Does patient have Pacemaker No 03/12/25 08:25 or ICD? When Was Last Pacemaker Check QUESTION #4 FULL TEXT: You/Your Family Experience fever (hyperthermia) with Anesthesia Last Oral Intake Last Oral intake: Last Oral Intake NPO since 07:30 03/12/25 08:25 Meds taken in AM with sips of No 03/12/25 08:25 water? Meds patient instructed to take am of surgery PONV PONV - emergency response coordinator: PONV - emergency response coordinator Female No 03/02/25 10:42 HX of Motion Sickness Yes 03/02/25 10:42 HX of N/V After Surgery No 03/02/25 10:42 Non-Smoker Yes 03/02/25 10:42 Duration of Surgery greater No 03/02/25 10:42 than 60 minutes Number of Risk Factors 2 03/02/25 10:42 PONV Score Moderate Risk 03/02/25 10:42 Height & Weight Height & Weight: Anesthesia: Height & Weight Height 5 ft 8 in 03/12/25 08:25 Weight: 68 kg 03/12/25 08:25 Body Mass Index (BMI) 22.8 03/12/25 08:25 Respiratory Assessment Respiratory Assessment - emergency response coordinator: Respiratory Tract Infection Hx - emergency response coordinator Hx Respiratory Tract Infection No 03/02/25 10:42 STOP Sleep Apnea STOP Sleep Apnea - emergency response coordinator: STOP Sleep Apnea - emergency response coordinator Hx Hypertension No 03/02/25 10:42 Hx Sleep Apnea No 03/02/25 10:42 CPAP BIPAP Do you snore loudly (louder No 03/02/25 10:42 than talking or can be heard Do you often feel tired/ No 03/02/25 10:42 fatigued/ sleepy during daytime? Has anyone observed you stop No 03/02/25 10:42 breathing during sleep? STOP Results Negative 03/02/25 10:42 QUESTION #5 FULL TEXT : Do you snore loudly (louder than talking or can be heard through closed doors)? Tobacco Use History Tobacco Use History - emergency response coordinator: Tobacco Use History - emergency response coordinator Tobacco Use Smoking Status Never smoker 03/02/25 10:42 Hx Tobacco Use No 03/02/25 10:42 Years Smoking Packs Smoked per Day Smoking Cessation Date was within the last 15 years Hx Smoking Cessation Date Hx Smoking Cessation Counseling Hematologic Medial History Hematologic Hx - emergency response coordinator: Hematologic Medical Hx - fumigator and sterilizer Hx of Blood Transfusion No 03/02/25 10:42 Hx of Transfusion in last 3 No 03/02/25 10:42 Months Date of Last Transfusion (if within last 3 months) Ever experience any problems No 03/02/25 10:42 with transfusion(s)? Specify any problems Hx of Preganancy in last 3 No 03/02/25 10:42 Months Nurse Filling Out Transfusion [email or web address] 03/02/25 10:42 & Questions: Date: 03/02/25 03/02/25 10:42 Time: 10:44 03/02/25 10:42 Patient unable to answer at this time (ie. confused, unrespo /Reproduction History /Reproductive History - emergency response coordinator: /Reproductive Hx- emergency response coordinator Hx Now No 03/02/25 10:42 Gestational Age (in weeks): EDC: Hx Hx Para Hx Section SAB No 03/02/25 10:42 Active Medications Active Medications: Current Medications Generic Name Dose Route Start Last Admin Trade Name Freq PRN Reason Stop Dose Admin Cefotetan Disodium 2 gm/ 100 mls @ 200 mls/hr 03/12/25 09:30 Sodium Chloride IV 03/12/25 09:59 INTRAOP ONE Lactated Ringer's 1,000 mls @ 15 mls/hr 03/12/25 08:15 03/12/25 08:30 IV 15 mls/hr .Q48H TRINH Administration PFSH Medical History High cholesterol History of IBS Alcohol use Perianal abscess Syncope Non-smoker History of stress test Rectal pain Family history of Burkett syndrome Hemorrhoids Anxiety Family hx of colon cancer Home Medications Medication Instructions Recorded Last Taken Type paroxetine HCl 10 mg tablet (Paxil) 10 mg PO QDAY 04/02/18 03/12/25 History colestipol 1 gram tablet 1 g PO QDAY #60 tabs 09/26/24 03/09/25 Rx dicyclomine 10 mg capsule 10 mg PO TID 3 months #270 caps 01/07/25 03/12/25 Rx Allergy/AdvReac Type Severity Reaction Status Date / Time No Known Allergies Allergy Verified 03/12/25 08:24 Family History Mother Colon cancer Hodgkin lymphoma Non-Hodgkin lymphoma Uncle Burkett syndrome Surgical History History of anal fistulotomy (~2021) Hx of tooth extraction History of wisdom tooth extraction Hx of colonoscopy Hx of inguinal hernia repair Social History household members: children current occupational status: employed Smoking Status: Never smoker second hand exposure: No alcohol intake: current alcohol intake frequency: a few times a month substance use type: does not use caffeine: Yes what type of physical activity do you participate in: none frequency: does not exercise seatbelt use: always Review of Systems (Anesthesia) ROS Narrative System reviewed and no additional complaints, except as documented.
--- NOTE | 2025-03-12 09:02 | PCM.HP.BLA ---
History and Physical Date of Admission: 03/12/25 Intake Vital Signs 09/12/2507:13 01/29/2508:46 Height 5 ft 8 in 5 ft 8 in Weight: 150 lb BMI 22.8 Respiration 16 Intake Visit Reasons: ABNORMAL HIDA Chief Complaint: abn hida Senior Graduate Advisor Required: No Is patient in pain?: No Allergies No Known Allergies Allergy (Verified 01/28/25 08:47) Medications Medication Instructions Recorded Confirmed Type paroxetine HCl 10 mg tablet (Paxil) 10 mg PO QDAY 04/02/18 01/28/25 History colestipol 1 gram tablet 1 g PO QDAY #60 tabs 09/26/24 01/28/25 Rx dicyclomine 10 mg capsule 10 mg PO TID 3 months #270 caps 01/07/25 01/28/25 Rx Have you fallen in the past year?: No PFSH Medical History Alcohol use Perianal abscess Syncope Non-smoker History of stress test Rectal pain Family history of Burkett syndrome Hemorrhoids Anxiety Family hx of colon cancer Surgical History History of anal fistulotomy (~2021) Hx of tooth extraction History of wisdom tooth extraction Hx of colonoscopy Hx of inguinal hernia repair Family History Mother Colon cancer Hodgkin lymphoma Non-Hodgkin lymphomaUncle Burkett syndrome Social History household members: children current occupational status: employed Smoking Status: Never smoker second hand exposure: No alcohol intake: current alcohol intake frequency: a few times a month substance use type: does not use caffeine: Yes what type of physical activity do you participate in: none frequency: does not exercise seatbelt use: always HPI HPI HPI: Patient is a 49-year-old male that was seen by me previously for colonoscopy for cramping. The patient reports that he is doing better on Bentyl after seeing GI. He had a HIDA which was abnormal so he is following up for that. ROS General General: No weight change, appetite, fatigue, colon cancer, breast cancer or weakness HEENT HEENT: No difficulty swallowing, eye injury, eye surgery, swollen glands or hoarseness Endo Endocrine: No thyroid disease, diabetes mellitus, thyroid cancer, Hair loss, heat intolerance or cold intolerance Skin Skin: No rash or changing moles Musc Musculoskeletal: Yes back problems; No arthritis, rheumatoid arthritis, gout or joint pain Cardio Cardiovascular: No murmur, pacemaker, heart disease, atrial fibrillation, high blood pressure, heart attack, heart stent, palpitations, shortness of breath with exertion or chest pain Psych Psychiatric: Yes anxiety; No depression or hearing voices Resp Respiratory: No shortness of breath, No sleep apnea, No cough, No COPD, No asthma, No emphysema and No wheezing Gastro Gastrointestinal: Yes abdominal pain, No nausea or vomiting, Yes diarrhea, No constipation, No blood in stool, No acid reflux, No hemorrhoids, No ulcers, No gallbladder problem and No black,tarry stools Rafiq Hematologic: No blood thinners, No blood disorders, No bleeding, No anemia and No blood clots Neuro Neurologic: No system reviewed and no additional complaints, except as documented, No as per HPI, No abnormal gait, No abnormal hearing, No abnormal movements, No abnormal speech, No behavioral changes, No burning sensations, No confusion, No convulsions, No disequilibrium, No dizziness, No localized weakness, No frequent falls, No headache(s), No lack of coordination, No loss of vision, No memory loss, No numbness, No other visual disturbances, No radicular pain, No restless legs, No sensory deficit, No syncope, No tingling, No tremor(s), No weakness and No other Exam Const General: cooperative Orientation: alert and oriented x3 HENMT Head: normal to inspection Neck Neck: normal visual inspection and full ROM Chest Chest palpation & inspection: normal inspection of the chest Resp Effort & Inspection: normal respiratory effort Auscultation: clear to auscultation bilaterally Cardio Rate: regular rate Rhythm: regular rhythm GI Inspection: non-distended Palpation: soft and nontender Skin General: no rashes or lesions noted Neuro General: patient alert and patient oriented x3 Extrem General: full ROM Psych Appearance: grossly normal Mental Status: mental status grossly normal Assessment and Plan Assessment and Plan (1) Biliary dyskinesia: Status: Acute Plan: The patient had an abnormal HIDA indicating biliary kinesia with an ejection fraction of 9%. I discussed robotic assisted laparoscopic cholecystectomy with the patient. I discussed the procedure in detail with the patient. I discussed the risks, benefits, and alternatives of the procedure. I discussed the risks including but not limited to bleeding, infection, injury to surrounding organs such as the liver, bile duct, bowels. I did discuss the possibility of having to convert to an open procedure as well as the possibility that if any injuries occurred this may necessitate further surgery at a tertiary care center. Orlando Cotton MD Pager: [facility] [address] [place] [address], [address] [place] [address] Office: I have examined the patient and the H&P has been reviewed. There are no clinical changes since date of exam.
--- NOTE | 2025-03-12 09:30 | GALL_PTH ---
PATIENT: CLAUDY NOVA LOC: [facility] U#:[id number] AGE/SX: 49/M ROOM: RE03/12/[address]: Dr. Orlando Cotton MD : 1975 BED: DIS: 03/12/2025 SPEC #: [id number] RECD: 03/12/25 13:15 STATUS: JANINA CINDY #: [id number] DRAKE: 03/12/25 09:[address]: Orlando Cotton DEPT: SURGICAL PATHOLOGY RECD BY: Parish Milton ENTERED: 03/12/25 14:04 SP TYPE: SANDRO CHUNG DR: Dr. Segundo Kruse, DO Tissues: A - Gallbladder, NOS Procedures: Surgery Specimen Level III HEADER OPERATION: Robotic cholecystectomy PRE-OP DIAGNOSIS: Biliary dyskinesia TISSUE SUBMITTED: A- Gallbladder MICROSCOPIC DIAGNOSIS A. Gallbladder, "biliary dyskinesia", cholecystectomy: - Cholesterolosis. MICROSCOPIC DESCRIPTION Slides are reviewed. GROSS DESCRIPTION A. Received in formalin labeled with the patient's name and date of . Designated as "gallbladder" is a 8.4 x 3.3 x 3.1 cm watt-green, intact gallbladder with attached patent cystic duct (inked black, shaved). A lymph node is not present. Opening reveals light green tenacious bile and devoid of choleliths. The mucosa is green and granular with a maximum wall thickness of 0.1 cm. Cholesterolosis is present. Modeling Instructor sections are submitted in 1 cassette. [place] 03/12/2025 CPT:71411
--- NOTE | 2025-03-12 10:41 | PCM.OPRPT ---
Operative Report (Standard) Operative Information Date of Procedure: 03/12/25 Pre-Operative Diagnosis: Biliary dyskinesia Post-Operative Diagnosis: Same Surgery/Procedure Performed: Robotic assisted laparoscopic cholecystectomy bottle capper: Yes Community Health Representative: Dory Jauregui Tasks completed by international first officer: Opening & closing and Retracting Type of Anesthesia: General/Regional RN Documented Start/Stop Times: Operation Date: 03/12/25 09:30 Case Time Into Pre-Op 03/12/25 08:07 Out of Pre-Op 03/12/25 09:39 Anesthesia Start 03/12/25 09:42 Into Room 03/12/25 09:42 Procedure Start 03/12/25 10:01 Procedure Start Time: 10:01 Procedure Stop Time: 10:50 Select all DRAINS/GRAFTS/IMPLANTS that apply: None Estimated Blood Loss: 5 Specimen collected: Yes Description of specimen(s) removed: Gallbladder Description of surgery: The patient was brought back to the operating room and general anesthesia was induced. The abdomen was prepped and draped in the usual sterile fashion. A midline incision was made superior to the umbilicus and deepened to the fascia. The fascia was grasped and elevated. A Veress needle was placed into the abdomen and a drop test was performed. The abdomen was then insufflated to 15 mmHg and the Veress needle was removed. An 8 mm port was placed into the abdomen and then the camera was placed into the abdomen. There was no injury from entry. Under direct visualization an 8 mm port was placed in the right upper quadrant and two 8 mm ports were placed in the left upper quadrant. The midline port was upsized to a 12 mm port. Next the patient was placed in steep reverse Trendelenburg and the robot was docked. The graspers were used to retract the gallbladder cephalad. The infundibulum was encountered and dissected free and retracted laterally. Dissection was carried out and critical view was obtained. Next the cystic duct was identified using ICG. The cystic duct was clipped and divided. The cystic artery was then clipped and divided. The gallbladder was then taken off of the gallbladder fossa using electrocautery. There was some bile spillage from the gallbladder. There was good hemostasis. The right upper quadrant was irrigated and suctioned dry. The camera was then moved to a different port and a bag was placed through the midline incision and the gallbladder was placed into the bag. Next the robot was undocked and the gallbladder was removed in the bag. Next using a Don Polanco needle the midline fascia was closed with an 0 Vicryl suture. The ports were then removed and the abdomen was allowed to desufflate. The incisions were injected with local anesthetic and closed with interrupted 4-0 Monocryl sutures. Steri-Strips and bandages were applied. Patient was then awoken and taken to PACU in stable condition and tolerated the procedure well. Surgical Findings: None Complications Complications: No Admit VTE Documentation VTE Mechan Device Prophylaxis: SCD's
--- NOTE | 2025-03-12 10:42 | DCINST_ITS ---
Discharge Instructions Procedure Gallbladder Diet Discharge Diet: Light diet - advance as tolerated Activity Discharge Activity: May Not Drive (for 2-3 days or while taking narcotic pain medications.) and - (Do not drive, work heavy equipment or sign legal documents for 24 hours.) May shower in (days): 1 Lifting Restrictions: 20 lbs for 2 weeks Additional Activity Instructions:: Pain medication may cause nausea. You should typically eat light foods as you take your pain medications. Pain medication may also cause constipation. If this is a problem for you, please discuss with your doctor. Alternate ibuprofen and Tylenol for pain control, oxycodone for breakthrough pain Dressing / Incision Call your doctor if your incision/area has: Continuous Slow Oozing, Sudden Increased Bleeding, Increased Pain/ Swelling, Increased Redness and Foul Smelling Discharge Call your doctor if you observe: Fever of 101 or Higher Suture Line Care: Avoid Pulling/Pushing and Avoid Pinching/Bending Remove Dressing in: 2 days Additional Dressing/Incision Instructions:: Leave operative bandaids on for 2 days. When you remove dressing, leave Steri-Strips on until your follow-up appointment, or until the Steri-Strips fall off on their own. Follow Up Care Please Follow Up With: Orlando Cotton MD When: Please call to schedule 2 week follow up appointment. [phone] Test Results: Test results from this visit will be discussed in further detail at your follow- up appointment, if applicable. Discharge Plan Admission Attending Provider: Orlando Cotton Primary Care Provider: Segundo Kruse Instructions Print Language: Malagasy Discharge Orders/Prescriptions Prescriptions: New oxycodone 5 mg Tablet 5 - 10 mg PO Q4H PRN PRN (Reason: Pain Score 4-10) 5 Days Qty: 14 0RF No Action paroxetine HCl [Paxil] 10 mg tablet 10 mg PO QDAY colestipol 1 gram tablet 1 g PO QDAY Qty: 60 1RF dicyclomine 10 mg capsule 10 mg PO TID 90 Days Qty: 270 3RF Referrals / Follow Up: Segundo Kruse DO [Primary Care Provider] - Disposition Disposition (needs filled in before D/C Order can be placed): Home, Self Care
--- NOTE | 2025-03-12 10:57 | PCM.POST.ANE ---
Anesthesia: Postop Eval I Current Vital Signs Temperature: 97.7 F Pulse Rate: 73 Blood Pressure: 140/90 Respiratory Rate: 20 Pulse Ox: 99 Oxygen Delivery Method: Room Air Assessment Airway patent: Yes Spontaneous unlabored respirations: Yes Mental status: Awake and Calm nausea: No Vomiting: No Anesthesia Complication: No Fluid Hydration Crystalloid volume administer (ml): 600 Total IV fluid infused: 600 Progress Note Anesthesia document: Postop Eval 1 completed: Yes
--- NOTE | 2025-03-12 11:56 | POSTOPAN2_ITS ---
Anesthesia Postop Eval I Sum Postop Eval Completion status Anesthesia document: Postop Eval 1 completed: Yes Anesthesia Postop Eval I Summary Anesthesia Postop Eval I Summary: Anesthesia Postop Eval I: Assessment Summary Airway patent Yes 03/12/25 10:58 SERVICE COORDINATOR ELDERLY [email or web address] Spontaneous unlabored Yes 03/12/25 10:58 SERVICE COORDINATOR ELDERLY [email or web address] respirations Mental status Awake,Calm 03/12/25 10:58 SERVICE COORDINATOR ELDERLY [email or web address] nausea No 03/12/25 10:58 SERVICE COORDINATOR ELDERLY [email or web address] Vomiting No 03/12/25 10:58 SERVICE COORDINATOR ELDERLY [email or web address] Anesthesia Postop Eval I: Fluid Summary Crystalloid volume administer 600 03/12/25 10:58 SERVICE COORDINATOR ELDERLY [email or web address] (ml) Colloids volume administered ( ml) Blood Product volume administered (ml) Total IV fluid infused 600 03/12/25 10:58 SERVICE COORDINATOR ELDERLY [email or web address] Anesthesia Postop Eval I: Summary Notes Anesthesia Complication No 03/12/25 10:58 SERVICE COORDINATOR ELDERLY [email or web address] Anesthesia Complication Comment: Post-operative progress note Anesthesia: Postop Eval II Evaluation Mental status: Awake and Calm Pain Level: 1 nausea: No Vomiting: No
--- NOTE | 2025-03-12 11:56 | PCM.POSTANE2 ---
Anesthesia Postop Eval I Sum Postop Eval Completion status Anesthesia document: Postop Eval 1 completed: Yes Anesthesia Postop Eval I Summary Anesthesia Postop Eval I Summary: Anesthesia Postop Eval I: Assessment Summary Airway patent Yes 03/12/25 10:58 [email or web address] [email or web address] Spontaneous unlabored Yes 03/12/25 10:58 BELT [email or web address] respirations Mental status Awake,Calm 03/12/25 10:58 [email or web address] [email or web address] nausea No 03/12/25 10:58 BELT [email or web address] Vomiting No 03/12/25 10:58 BELT [email or web address] Anesthesia Postop Eval I: Fluid Summary Crystalloid volume administer 600 03/12/25 10:58 BELT [email or web address] (ml) Colloids volume administered ( ml) Blood Product volume administered (ml) Total IV fluid infused 600 03/12/25 10:58 BELT [email or web address] Anesthesia Postop Eval I: Summary Notes Anesthesia Complication No 03/12/25 10:58 BELT [email or web address] Anesthesia Complication Comment: Post-operative progress note Anesthesia: Postop Eval II Evaluation Mental status: Awake and Calm Pain Level: 1 nausea: No Vomiting: No Complications Anesthesia Complication: No
== END 2025-03-12 13:15 | disposition home or self-care (01) ==
LOC: SDC 07:56 → AC 07:56
PROVIDERS: PCP Family Medicine; Referring Provider Family Medicine; Visit Provider Surgery
PROC: 0FT44ZZ Resection of Gallbladder, Percutaneous Endoscopic Approach (ICD-10-PCS; CPT 47562; principal; 2025-03-12 09:10)
DX: K82.4 Cholesterolosis of gallbladder (principal); F41.9 Anxiety disorder, unspecified; Z79.899 Other long term (current) drug therapy
CPT/HCPCS: 47562; S2900; 00790; 88304; 93005; J2405